=== PATIENT | male | born 1970 | race Caucasian/White ===

== ENCOUNTER → 2022-11-18 | Outpatient (REF) | payer MEDICARE, MEDICAID | LOC: M SFHCADAM 15:18 | PROVIDERS: ATTEND Physician Assistant | DX: R13.10 Dysphagia, unspecified (principal); R63.6 Underweight; Z12.5 Encounter for screening for malignant neoplasm of prostate; Z13.220 Encounter for screening for lipoid disorders; Z13.1 Encounter for screening for diabetes mellitus; Z91.89 Other specified personal risk factors, not elsewhere classified ==

== ENCOUNTER → 2022-11-24 | Outpatient (REF) | payer MEDICARE, MEDICAID ==
[2022-11-24 13:18] LABS: BASO % 0.8 % (0.0-1.0); EOS # 0.2 10^3/uL (0.0-0.5); EOS % 3.4 % (0.0-3.0); HEMATOCRIT 45.1 % (42.0-52.0); HEMOGLOBIN 14.1 g/dl (13.5-17.5); LYMPH % 18.8 % (24.0-44.0); MEAN CORPUSCULAR HEMOGLOBIN 28.1 pg (27.0-33.0); MEAN CORPUSCULAR HGB CONC 31.3 g/dl (32.0-36.5); MONO # 0.5 10^3/uL (0.0-0.8); MONO % 9.6 % (2.0-8.0); NEUTROPHILS # 3.6 10^3/uL (1.5-8.5); NEUTROPHILS % 67.2 % (36.0-66.0); PLATELET COUNT, AUTOMATED 142 10^3/uL (150-450); RED BLOOD COUNT 5.01 10^6/uL (4.30-6.10); WHITE BLOOD COUNT 5.3 10^3/uL (4.0-10.0)
[2022-11-24 13:39] LABS: ALBUMIN 4.1 G/DL (3.2-5.2); ALKALINE PHOSPHATASE 67 U/L (46-116); ALT/SGPT 17 U/L (7.0-40); AST/SGOT 24 U/L (<34); BILIRUBIN,TOTAL 0.5 MG/DL (0.3-1.2); BLOOD UREA NITROGEN 13 MG/DL (9-23); CALCIUM LEVEL 8.7 MG/DL (8.5-10.1); CARBON DIOXIDE LEVEL 33 MMOL/L (20-31); CHLORIDE LEVEL 103 MMOL/L (98-107); CHOLESTEROL LEVEL 130 MG/DL (<200); CHOLESTEROL RISK RATIO 3.07 (<5); CREATININE FOR GFR 0.66 MG/DL (0.70-1.30); GLOMERULAR FILTRATION RATE > 60.0 (>56); GLUCOSE, FASTING 74 MG/DL (60-100); HDL CHOLESTEROL 42.3 MG/DL (>40); LDL CHOLESTEROL 68.9 MG/DL (<100); NON-HDL-C 87.7 MG/DL; POTASSIUM SERUM 4.4 MMOL/L (3.5-5.1); SODIUM LEVEL 140 MMOL/L (136-145); TRIGLYCERIDES LEVEL 94 MG/DL (<150)
[2022-11-24 13:42] LABS: FREE T4 0.87 NG/DL (0.89-1.76); VITAMIN B12 LEVEL 239 PG/ML (211-911)
[2022-11-24 13:44] LABS: THYROID STIMULATING HORMONE 1.545 uIU/ML (0.55-4.78)
[2022-11-24 13:45] LABS: FOLATE 13.1 NG/ML (>5.4)
[2022-11-24 14:27] LABS: HEMOGLOBIN A1c 5.5 % (4.0-6.0)
== END ==
LOC: M SFHCADAM 08:27
PROVIDERS: ATTEND Physician Assistant
DX: R13.10 Dysphagia, unspecified (principal); R63.6 Underweight; Z12.5 Encounter for screening for malignant neoplasm of prostate; Z13.220 Encounter for screening for lipoid disorders; Z13.1 Encounter for screening for diabetes mellitus; Z91.89 Other specified personal risk factors, not elsewhere classified

== ENCOUNTER → 2022-12-07 | Outpatient (REF) | payer MEDICARE, MEDICAID | LOC: M SFHCADAM 17:58 | PROVIDERS: ATTEND Physician Assistant | DX: Z53.20 Procedure and treatment not carried out because of patient's decision for unspecified reasons (principal) ==

== ENCOUNTER → 2023-01-05 | Outpatient (CLI) | payer MEDICARE, MEDICAID ==
[~2023-01-05] MED LIST: E-Z-PAQUE 96% w/w SUSP 176GM BTL As Ordered ONE; VARIBAR NECTAR 40% w/v 240ML SUSP BTL As Ordered ONE; VARIBAR PUDDING 40% w/v 230ML TUBE As Ordered ONE
== END ==
LOC: M RAD 10:31
PROVIDERS: ATTEND Physician Assistant
DX: R13.10 Dysphagia, unspecified (principal)

== ENCOUNTER → 2023-01-06 | Outpatient (CLI) | payer MEDICARE, MEDICAID | LOC: M WHC 13:41 | PROVIDERS: ATTEND Physician Assistant | DX: R19.09 Other intra-abdominal and pelvic swelling, mass and lump (principal) ==

== ENCOUNTER → 2023-04-27 | Outpatient (REF) | payer MEDICARE, MEDICAID ==
[~2023-04-27] MED LIST changes: +AMMO12CR7 TOP; -E-Z-PAQUE 96% w/w SUSP 176GM BTL As Ordered ONE; +SALI0.6530; -VARIBAR NECTAR 40% w/v 240ML SUSP BTL As Ordered ONE; -VARIBAR PUDDING 40% w/v 230ML TUBE As Ordered ONE; +VITA30005 SL; +[UNRECOGNIZED DRUG - CODE] PO
[2023-04-27 14:10] LABS: HEMATOCRIT 41.4 % (42.0-52.0); HEMOGLOBIN 13.2 g/dl (13.5-17.5); MEAN CORPUSCULAR HEMOGLOBIN 28.5 pg (27.0-33.0); MEAN CORPUSCULAR HGB CONC 31.9 g/dl (32.0-36.5); MEAN CORPUSCULAR VOLUME 89.4 fl (80.0-96.0); PLATELET COUNT, AUTOMATED 166 10^3/uL (150-450); RED BLOOD COUNT 4.63 10^6/uL (4.30-6.10); WHITE BLOOD COUNT 9.7 10^3/uL (4.0-10.0)
[2023-04-27 14:41] LABS: ALBUMIN 3.7 G/DL (3.2-5.2); ALKALINE PHOSPHATASE 58 U/L (46-116); ALT/SGPT 23 U/L (7.0-40); AST/SGOT 40 U/L (<34); BILIRUBIN,TOTAL 0.3 MG/DL (0.3-1.2); BLOOD UREA NITROGEN 13 MG/DL (9-23); CALCIUM LEVEL 8.6 MG/DL (8.5-10.1); CARBON DIOXIDE LEVEL 31 MMOL/L (20-31); CHLORIDE LEVEL 102 MMOL/L (98-107); CREATININE FOR GFR 0.65 MG/DL (0.70-1.30); GLOMERULAR FILTRATION RATE > 60.0 (>56); GLUCOSE, FASTING 70 MG/DL (60-100); SODIUM LEVEL 139 MMOL/L (136-145); TOTAL PROTEIN 7.2 G/DL (5.7-8.2)
== END ==
LOC: M SFHCADAM 11:06
PROVIDERS: ATTEND Physician Assistant
DX: Z01.818 Encounter for other preprocedural examination (principal); J01.90 Acute sinusitis, unspecified

== ENCOUNTER → 2023-04-27 | Outpatient (CLI) | payer MEDICARE, MEDICAID ==
[~2023-04-27] MED LIST changes: +HYDR1SOL49 PO; +[UNRECOGNIZED DRUG - CODE] PO
== END ==
LOC: M ADAMS 11:15
PROVIDERS: ATTEND Physician Assistant
DX: Z01.818 Encounter for other preprocedural examination (principal); G80.9 Cerebral palsy, unspecified

== ENCOUNTER 2023-05-05 09:10 | Day surgery (SDC) | payer MEDICARE, MEDICAID ==
[~2023-05-05] VITALS: Ht 162.6 cm; Wt 45.8 kg
[~2023-05-05 09:10] MED LIST changes: +CelecoXIB 400 MG CAP PO ONE; -HYDR1SOL49 PO; -[UNRECOGNIZED DRUG - CODE] PO; +ceFAZolin SOD 2 GM in IV 1 EA IV ONE
[2023-05-05] MEDS ORDERED: propofoL 200 MG/20 ML VIAL As Ordered ONE (09:24)
[2023-05-05] MEDS ORDERED: ROCURONIUM BROMIDE 50MG/5ML VIAL As Ordered ONE (09:24)
[2023-05-05] MEDS ORDERED: MIDAZOLAM INJ 2MG/2ML VIAL As Ordered ONE (09:24)
[2023-05-05] MEDS ORDERED: LIDOCAINE 2% 100MG/5ML SDV (FOR ANES.) As Ordered ONE (09:24)
[2023-05-05] MEDS ORDERED: fentaNYL 100 MCG/2 ML INJECTION As Ordered ONE (09:24)
[2023-05-05] MEDS ORDERED: LR 1,000 ML IV SCH ×2 (09:35→13:05)
[2023-05-05] MEDS ORDERED: LIDOCAINE 1% SDV 30ML VIAL As Ordered ONE (10:38)
[2023-05-05] MEDS ORDERED: ACETAMINOPHEN 1000MG 100ML IV BAG As Ordered ONE (11:41)
[2023-05-05] MEDS ORDERED: KETOROLAC 60MG 2ML VIAL As Ordered ONE (11:42)
[2023-05-05] MEDS ORDERED: ONDANSETRON 4MG 2ML VIAL As Ordered ONE (11:42)
[2023-05-05] MEDS ORDERED: ONDANSETRON 4MG 2ML VIAL IV PRN (13:05)
[2023-05-05] MEDS ORDERED: oxyCODONE 5MG TAB PO PRN (13:05)
[2023-05-05] MEDS ORDERED: fentaNYL 100 MCG/2 ML INJECTION IV PRN (13:05)
[2023-05-05] MEDS ORDERED: HYDROcodone/APAP LIQUID 7.5-325MG 15ML UDC (LORTAB ELIXIR) PO PRN (13:35)
[2023-05-05] MEDS ORDERED: HYDR1SOL49 PO (13:36)
[2023-05-05 14:00] VITALS: BP 135/74; TEMP 98; O2SAT 94
[2023-05-05] MEDS ORDERED: [UNRECOGNIZED DRUG - CODE] PO (18:16)
== END 2023-05-05 14:25 | disposition home or self-care (01) ==
LOC: M SDC 09:10
PROVIDERS: ATTEND Surgery
DX: K40.20 Bilateral inguinal hernia, without obstruction or gangrene, not specified as recurrent (principal); D17.6 Benign lipomatous neoplasm of spermatic cord; G80.9 Cerebral palsy, unspecified; Z88.2 Allergy status to sulfonamides
CPT/HCPCS: 49650; 55520; C1781; J0131; J0665; J0690; J1100; J1885; J2250; J2405; J3010

== ENCOUNTER → 2023-08-11 | Outpatient (REF) | payer MEDICARE, MEDICAID ==
[~2023-08-11] MED LIST changes: -CelecoXIB 400 MG CAP PO ONE; +HYDR1SOL49 PO; +[UNRECOGNIZED DRUG - CODE] PO; -ceFAZolin SOD 2 GM in IV 1 EA IV ONE
== END ==
LOC: M SFHCADAM 08:46
PROVIDERS: ATTEND Physician Assistant
DX: Z53.9 Procedure and treatment not carried out, unspecified reason (principal)

== ENCOUNTER → 2023-08-22 | Outpatient (CLI) | payer MEDICARE, MEDICAID | LOC: M ADAMS 12:26 | PROVIDERS: ATTEND Physician Assistant | DX: J06.9 Acute upper respiratory infection, unspecified (principal) ==

== ENCOUNTER → 2023-08-22 | Outpatient (REF) | payer MEDICARE, MEDICAID ==
[2023-08-22 16:31] LABS: BASO # 0.1 10^3/uL (0.0-0.2); BASO % 0.8 % (0.0-1.0); EOS # 0.4 10^3/uL (0.0-0.5); EOS % 4.6 % (0.0-3.0); HEMATOCRIT 47.5 % (42.0-52.0); HEMOGLOBIN 14.7 g/dl (13.5-17.5); LYMPH # 0.8 10^3/uL (1.5-5.0); LYMPH % 10.4 % (24.0-44.0); MEAN CORPUSCULAR HEMOGLOBIN 27.4 pg (27.0-33.0); MEAN CORPUSCULAR HGB CONC 30.9 g/dl (32.0-36.5); MEAN CORPUSCULAR VOLUME 88.6 fl (80.0-96.0); MONO # 0.9 10^3/uL (0.0-0.8); MONO % 11.8 % (2.0-8.0); NEUTROPHILS # 5.7 10^3/uL (1.5-8.5); NEUTROPHILS % 72.1 % (36.0-66.0); RED BLOOD COUNT 5.36 10^6/uL (4.30-6.10); WHITE BLOOD COUNT 7.9 10^3/uL (4.0-10.0)
[2023-08-22 16:51] LABS: PLATELET COUNT, AUTOMATED 139 10^3/uL (150-450)
[2023-08-22 16:52] LABS: GIANT PLATELETS 1+; PLATELET ESTIMATE DECREASED (NORMAL)
[2023-08-22 17:00] LABS: ALBUMIN 4.1 G/DL (3.2-5.2); ALKALINE PHOSPHATASE 82 U/L (46-116); ALT/SGPT 23 U/L (7.0-40); AST/SGOT 29 U/L (<34); BILIRUBIN,TOTAL 0.4 MG/DL (0.3-1.2); BLOOD UREA NITROGEN 11 MG/DL (9-23); CALCIUM LEVEL 9.5 MG/DL (8.5-10.1); CARBON DIOXIDE LEVEL 31 MMOL/L (20-31); CHLORIDE LEVEL 102 MMOL/L (98-107); CREATININE FOR GFR 0.64 MG/DL (0.70-1.30); GLOMERULAR FILTRATION RATE > 60.0 (>56); GLUCOSE, FASTING 73 MG/DL (60-100); POTASSIUM SERUM 4.9 MMOL/L (3.5-5.1); SODIUM LEVEL 140 MMOL/L (136-145); TOTAL PROTEIN 7.8 G/DL (5.7-8.2)
== END ==
LOC: M SFHCADAM 12:20
PROVIDERS: ATTEND Physician Assistant
DX: J06.9 Acute upper respiratory infection, unspecified (principal)

== ENCOUNTER 2023-08-23 14:45 | Inpatient (IN) | payer MEDICARE, MEDICAID ==
[~2023-08-23] VITALS: Ht 162.6 cm; Wt 49.0 kg
[2023-08-23] MEDS ORDERED: NS 500 ML IV ONE (15:20)
[2023-08-23] MEDS ORDERED: cefTRIAXone SOD 2 GM in D5W MINI-BAG PLUS 50 ML IV ONE (15:20)
[2023-08-23] MEDS ORDERED: IBUPROFEN 100MG 5ML SUSP UDC DYE FREE PO ONE (15:20)
[2023-08-23 15:37] LABS: ABG BASE EXCESS 5.3 (-2.0-2.0); ABG HCO3 28.5 MMOL/L (22.0-26.0); ABG O2 SATURATION 94.7 % (95.0-99.0); ABG PARTIAL PRESSURE O2 66.4 mmHg (75.0-100.0); ABG STANDARD HCO3 29.2 MMOL/L. (22.0-26.0); ABG TOTAL CO2 29.7 MMOL/L (22.0-29.0); ABG pH (ARTERIAL) 7.505 UNITS (7.350-7.450)
[2023-08-23 15:38] LABS: BASO # 0.1 10^3/uL (0.0-0.2); BASO % 0.6 % (0.0-1.0); EOS # 0.2 10^3/uL (0.0-0.5); EOS % 1.6 % (0.0-3.0); HEMATOCRIT 40.1 % (42.0-52.0); LYMPH # 0.9 10^3/uL (1.5-5.0); LYMPH % 9.1 % (24.0-44.0); MEAN CORPUSCULAR HEMOGLOBIN 27.5 pg (27.0-33.0); MEAN CORPUSCULAR HGB CONC 32.4 g/dl (32.0-36.5); MONO # 1.3 10^3/uL (0.0-0.8); MONO % 13.2 % (2.0-8.0); NEUTROPHILS # 7.5 10^3/uL (1.5-8.5); NEUTROPHILS % 75.2 % (36.0-66.0); PLATELET COUNT, AUTOMATED 151 10^3/uL (150-450); RED BLOOD COUNT 4.72 10^6/uL (4.30-6.10)
[2023-08-23 15:51] LABS: INR 1.16; PROTHROMBIN TIME 14.5 SECONDS (12.5-14.5)
[2023-08-23] MEDS ORDERED: ACETAMINOPHEN *IV* 500 MG in IV 1 EA IV ONE (15:55)
[2023-08-23 16:09] LABS: CPK CREATINE PHOSPHOKINASE 583 U/L (46-171)
[2023-08-23 16:10] LABS: ALBUMIN 3.7 G/DL (3.2-5.2); ALKALINE PHOSPHATASE 69 U/L (46-116); ALT/SGPT 21 U/L (7.0-40); AST/SGOT 30 U/L (<34); BILIRUBIN,DIRECT 0.2 MG/DL (<0.4); BILIRUBIN,TOTAL 0.4 MG/DL (0.3-1.2); BLOOD UREA NITROGEN 16 MG/DL (9-23); CALCIUM LEVEL 8.6 MG/DL (8.5-10.1); CARBON DIOXIDE LEVEL 33 MMOL/L (20-31); CHLORIDE LEVEL 100 MMOL/L (98-107); CK-MB VALUE MASS < 1.0 NG/ML (<3.6); CREATININE FOR GFR 0.79 MG/DL (0.70-1.30); GLOMERULAR FILTRATION RATE > 60.0 (>56); GLUCOSE, FASTING 114 MG/DL (60-100); MB/CK RELATIVE INDEX 0.17 (< OR =4); POTASSIUM SERUM 4.1 MMOL/L (3.5-5.1); SODIUM LEVEL 137 MMOL/L (136-145); TOTAL PROTEIN 7.5 G/DL (5.7-8.2)
[2023-08-23 16:11] LABS: THYROID STIMULATING HORMONE 2.351 uIU/ML (0.55-4.78)
[2023-08-23 16:12] LABS: FREE T4 0.96 NG/DL (0.89-1.76)
[2023-08-23] MEDS ORDERED: NS 930 ML in IV 1 EA IV ONE (16:25)
[2023-08-23] MEDS ORDERED: ISOVUE-370 76% 100ML VIAL As Ordered ONE (16:33)
[2023-08-23] MEDS ORDERED: MED REC IN PROGRESS XX SCH (16:45)
[2023-08-23 17:03] LABS: AMORPHOUS SEDIMENT SMALL (NEGATIVE); APPEARANCE, URINE CLOUDY (CLEAR); BACTERIA, URINE AUTO NEGATIVE (NEGATIVE); BILIRUBIN, URINE AUTO NEGATIVE (NEGATIVE); BLOOD, URINE BLOOD 1+ (NEGATIVE); COLOR, URINE AMBER (YELLOW); GLUCOSE, URINE (UA) AUTO NEGATIVE (NEGATIVE); KETONE, URINE AUTO NEGATIVE (NEGATIVE); LEUKOCYTE ESTERASE, URINE AUTO NEGATIVE (NEGATIVE); MUCUS, URINE SMALL (NEGATIVE); NITRITE, URINE AUTO NEGATIVE (NEGATIVE); PROTEIN, URINE AUTO 2+ mg/dL (NEGATIVE); RBC, URINE AUTO 100 /HPF (0-3); SPECIFIC GRAVITY URINE AUTO 1.029 (1.002-1.035); SQUAMOUS EPITHELIAL CELL UR AU 0 /HPF (0-6); UROBILINOGEN, URINE AUTO 0.2 mg/dL (0.0-2.0); WBC, URINE AUTO 10 /HPF (0-3)
[2023-08-23] MEDS ORDERED: HOME MED LIST COMPLETE! XX SCH (18:15)
[2023-08-23] MEDS ORDERED: ACETAMINOPHEN TAB 650MG DOSE (2X325MG) PO PRN (19:35)
[2023-08-23] MEDS: ALBUTEROL SULFATE 2.5MG/0.5ML INH NEB SOLN INH SCH (20:00)
[2023-08-23] MEDS: NS 1,000 ML IV SCH (20:18)
[2023-08-23 20:23] LABS: PROCALCITONIN 0.06 ng/ml
[2023-08-23] MEDS ORDERED: DOXYCYCLINE HYCLATE 100 MG in D5W MINI-BAG PLUS 100 ML IV SCH (21:00)
[2023-08-24] VITALS (18 sets, daily range): BP systolic 120–145; BP diastolic 56–73; TEMP 100.2–103.2; O2SAT 90–98
[2023-08-24] MEDS: ALBUTEROL SULFATE 2.5MG/0.5ML INH NEB SOLN INH SCH ×4 (01:24→16:00)
[2023-08-24] MEDS: NS 1,000 ML IV SCH ×2 (06:59→09:48)
[2023-08-24 07:13] LABS: HEMATOCRIT 37.9 % (42.0-52.0); MEAN CORPUSCULAR HEMOGLOBIN 27.5 pg (27.0-33.0); MEAN CORPUSCULAR HGB CONC 31.7 g/dl (32.0-36.5); MEAN CORPUSCULAR VOLUME 86.9 fl (80.0-96.0); PLATELET COUNT, AUTOMATED 129 10^3/uL (150-450); RED BLOOD COUNT 4.36 10^6/uL (4.30-6.10)
[2023-08-24 07:43] LABS: ALBUMIN 2.9 G/DL (3.2-5.2); ALKALINE PHOSPHATASE 53 U/L (46-116); ALT/SGPT 20 U/L (7.0-40); AST/SGOT 30 U/L (<34); BILIRUBIN,TOTAL 0.2 MG/DL (0.3-1.2); BLOOD UREA NITROGEN 11 MG/DL (9-23); CALCIUM LEVEL 7.2 MG/DL (8.5-10.1); CARBON DIOXIDE LEVEL 29 MMOL/L (20-31); CHLORIDE LEVEL 108 MMOL/L (98-107); CREATININE FOR GFR 0.63 MG/DL (0.70-1.30); GLOMERULAR FILTRATION RATE > 60.0 (>56); GLUCOSE, FASTING 75 MG/DL (60-100); MAGNESIUM LEVEL 1.7 MG/DL (1.8-2.4); SODIUM LEVEL 142 MMOL/L (136-145); TOTAL PROTEIN 5.7 G/DL (5.7-8.2)
[2023-08-24] MEDS: FORMOTEROL FUMARATE 20 MCG/2 ML INHALATION SOLUTION (PERFOROMIST) INH SCH ×2 (08:48→20:17)
[2023-08-24] MEDS: SODIUM CHLORIDE HYPERTONIC 3% 4ML NEB SOL INH SCH ×4 (08:48→20:17)
[2023-08-24] MEDS: BUDESONIDE 0.5 MG/2 ML INHALATION SUSPENSION NEB SCH ×2 (08:48→20:17)
[2023-08-24] MEDS ORDERED: SODIUM CHLORIDE 0.9% 1000ML IV SCH (09:30)
[2023-08-24] MEDS: ENOXAPARIN 40MG/0.4ML SYRINGE (J1650 PER 10MG) SC SCH (09:48)
[2023-08-24] MEDS: PIPERACILLIN/TAZOBACTAM SOD 3.375 GM in D5W MINI-BAG PLUS 50 ML IV SCH ×3 (09:48→21:54)
[2023-08-24] MEDS ORDERED: MAG SULF 1GM/100ML (MAG RUN) 1 GM in IV 1 EA IV ONE (15:10)
[2023-08-24] MEDS: ACETAMINOPHEN *IV* 1,000 MG in IV 1 EA IV PRN (15:59)
[2023-08-24] MEDS ORDERED: cefTRIAXone SOD 1 GM in D5W MINI-BAG PLUS 50 ML IV SCH (16:00)
[2023-08-24] MEDS: LEVALBUTEROL 1.25MG 0.5ML CONCENTRATE NEB INH SCH (20:17)
[2023-08-24] MEDS: SODIUM CHLORIDE NASAL 0.65% SPRAY BTL (OCEAN) SCH (21:00)
[2023-08-25] VITALS (33 sets, daily range): BP systolic 102–122; BP diastolic 55–93; TEMP 98.3–100.9; O2SAT 87–99
[2023-08-25] MEDS: NS 1,000 ML IV SCH ×2 (01:35→17:58)
[2023-08-25] MEDS: SODIUM CHLORIDE HYPERTONIC 3% 4ML NEB SOL INH SCH ×4 (01:39→20:21)
[2023-08-25] MEDS: LEVALBUTEROL 1.25MG 0.5ML CONCENTRATE NEB INH SCH ×4 (01:39→20:21)
[2023-08-25] MEDS: ACETAMINOPHEN *IV* 1,000 MG in IV 1 EA IV PRN (04:21)
[2023-08-25] MEDS: PIPERACILLIN/TAZOBACTAM SOD 3.375 GM in D5W MINI-BAG PLUS 50 ML IV SCH ×4 (04:44→21:02)
[2023-08-25 06:55] LABS: HEMOGLOBIN 11.8 g/dl (13.5-17.5); MEAN CORPUSCULAR HEMOGLOBIN 28.2 pg (27.0-33.0); MEAN CORPUSCULAR HGB CONC 32.8 g/dl (32.0-36.5); MEAN CORPUSCULAR VOLUME 85.9 fl (80.0-96.0); PLATELET COUNT, AUTOMATED 129 10^3/uL (150-450); RED BLOOD COUNT 4.19 10^6/uL (4.30-6.10); WHITE BLOOD COUNT 7.6 10^3/uL (4.0-10.0)
[2023-08-25 07:22] LABS: BLOOD UREA NITROGEN 11 MG/DL (9-23); CALCIUM LEVEL 7.1 MG/DL (8.5-10.1); CARBON DIOXIDE LEVEL 27 MMOL/L (20-31); CHLORIDE LEVEL 103 MMOL/L (98-107); CREATININE FOR GFR 0.72 MG/DL (0.70-1.30); GLOMERULAR FILTRATION RATE > 60.0 (>56); GLUCOSE, FASTING 79 MG/DL (60-100); SODIUM LEVEL 139 MMOL/L (136-145)
[2023-08-25] MEDS: BUDESONIDE 0.5 MG/2 ML INHALATION SUSPENSION NEB SCH ×2 (07:31→20:20)
[2023-08-25] MEDS: FORMOTEROL FUMARATE 20 MCG/2 ML INHALATION SOLUTION (PERFOROMIST) INH SCH ×2 (07:31→20:21)
[2023-08-25] MEDS: ENOXAPARIN 40MG/0.4ML SYRINGE (J1650 PER 10MG) SC SCH (09:56)
[2023-08-25] MEDS: SODIUM CHLORIDE NASAL 0.65% SPRAY BTL (OCEAN) SCH ×2 (09:56→21:02)
[2023-08-25] MEDS: dexAMETHasone 20MG/5ML VIAL IV SCH (10:12)
[2023-08-25] MEDS ORDERED: MIRA3350 PO (13:21)
[2023-08-26] VITALS (34 sets, daily range): BP systolic 94–135; BP diastolic 52–76; TEMP 96.8–98.5; O2SAT 89–100
[2023-08-26] MEDS: SODIUM CHLORIDE HYPERTONIC 3% 4ML NEB SOL INH SCH ×4 (01:54→20:01)
[2023-08-26] MEDS: LEVALBUTEROL 1.25MG 0.5ML CONCENTRATE NEB INH SCH ×4 (01:54→20:00)
[2023-08-26] MEDS: PIPERACILLIN/TAZOBACTAM SOD 3.375 GM in D5W MINI-BAG PLUS 50 ML IV SCH ×4 (03:00→21:15)
[2023-08-26] MEDS: NS 1,000 ML IV SCH ×3 (03:53→20:01)
[2023-08-26 07:10] LABS: HEMATOCRIT 36.6 % (42.0-52.0); HEMOGLOBIN 11.8 g/dl (13.5-17.5); MEAN CORPUSCULAR HEMOGLOBIN 28.2 pg (27.0-33.0); MEAN CORPUSCULAR HGB CONC 32.2 g/dl (32.0-36.5); MEAN CORPUSCULAR VOLUME 87.4 fl (80.0-96.0); PLATELET COUNT, AUTOMATED 138 10^3/uL (150-450); RED BLOOD COUNT 4.19 10^6/uL (4.30-6.10); WHITE BLOOD COUNT 5.5 10^3/uL (4.0-10.0)
[2023-08-26] MEDS: FORMOTEROL FUMARATE 20 MCG/2 ML INHALATION SOLUTION (PERFOROMIST) INH SCH ×2 (07:39→20:00)
[2023-08-26] MEDS: BUDESONIDE 0.5 MG/2 ML INHALATION SUSPENSION NEB SCH ×2 (07:40→20:00)
[2023-08-26] MEDS: dexAMETHasone 20MG/5ML VIAL IV SCH (10:17)
[2023-08-26] MEDS: ENOXAPARIN 40MG/0.4ML SYRINGE (J1650 PER 10MG) SC SCH (10:18)
[2023-08-26] MEDS: SODIUM CHLORIDE NASAL 0.65% SPRAY BTL (OCEAN) SCH ×2 (10:18→21:15)
[2023-08-27] VITALS (17 sets, daily range): BP systolic 111–121; BP diastolic 66–87; TEMP 97.3–98.9; O2SAT 90–100
[2023-08-27] MEDS: LEVALBUTEROL 1.25MG 0.5ML CONCENTRATE NEB INH SCH ×4 (01:43→19:33)
[2023-08-27] MEDS: SODIUM CHLORIDE HYPERTONIC 3% 4ML NEB SOL INH SCH ×4 (01:43→19:34)
[2023-08-27] MEDS: PIPERACILLIN/TAZOBACTAM SOD 3.375 GM in D5W MINI-BAG PLUS 50 ML IV SCH ×4 (02:41→21:18)
[2023-08-27] MEDS: BUDESONIDE 0.5 MG/2 ML INHALATION SUSPENSION NEB SCH ×2 (09:03→19:33)
[2023-08-27] MEDS: FORMOTEROL FUMARATE 20 MCG/2 ML INHALATION SOLUTION (PERFOROMIST) INH SCH ×2 (09:04→20:10)
[2023-08-27] MEDS: SODIUM CHLORIDE NASAL 0.65% SPRAY BTL (OCEAN) SCH ×2 (09:56→21:18)
[2023-08-27] MEDS: dexAMETHasone 20MG/5ML VIAL IV SCH (09:56)
[2023-08-27] MEDS: ENOXAPARIN 40MG/0.4ML SYRINGE (J1650 PER 10MG) SC SCH (09:56)
[2023-08-28] MEDS: LEVALBUTEROL 1.25MG 0.5ML CONCENTRATE NEB INH SCH ×2 (01:44→08:15)
[2023-08-28] MEDS: SODIUM CHLORIDE HYPERTONIC 3% 4ML NEB SOL INH SCH ×2 (01:47→08:07)
[2023-08-28] MEDS: PIPERACILLIN/TAZOBACTAM SOD 3.375 GM in D5W MINI-BAG PLUS 50 ML IV SCH ×2 (03:35→08:48)
[2023-08-28 05:13] VITALS: BP 115/66; TEMP 98.1; O2SAT 90
[2023-08-28 06:26] LABS: HEMATOCRIT 39.7 % (42.0-52.0); HEMOGLOBIN 12.6 g/dl (13.5-17.5); MEAN CORPUSCULAR HEMOGLOBIN 27.8 pg (27.0-33.0); MEAN CORPUSCULAR HGB CONC 31.7 g/dl (32.0-36.5); MEAN CORPUSCULAR VOLUME 87.6 fl (80.0-96.0); PLATELET COUNT, AUTOMATED 163 10^3/uL (150-450); RED BLOOD COUNT 4.53 10^6/uL (4.30-6.10); WHITE BLOOD COUNT 6.4 10^3/uL (4.0-10.0)
[2023-08-28 06:42] LABS: BLOOD UREA NITROGEN 13 MG/DL (9-23); CARBON DIOXIDE LEVEL 30 MMOL/L (20-31); CHLORIDE LEVEL 109 MMOL/L (98-107); CREATININE FOR GFR 0.63 MG/DL (0.70-1.30); GLOMERULAR FILTRATION RATE > 60.0 (>56); GLUCOSE, FASTING 91 MG/DL (60-100); POTASSIUM SERUM 3.9 MMOL/L (3.5-5.1); SODIUM LEVEL 145 MMOL/L (136-145)
[2023-08-28 06:59] LABS: ATYPICAL LYMPH 6 % (0-5); LYMPHOCYTES 27 % (16-44); MONOCYTES 8 % (0-5); NEUTROPHILS 59 % (28-66); PLATELET ESTIMATE NORMAL (NORMAL)
[2023-08-28] MEDS: FORMOTEROL FUMARATE 20 MCG/2 ML INHALATION SOLUTION (PERFOROMIST) INH SCH (08:07)
[2023-08-28] MEDS: BUDESONIDE 0.5 MG/2 ML INHALATION SUSPENSION NEB SCH (08:15)
[2023-08-28] MEDS: dexAMETHasone 20MG/5ML VIAL IV SCH (08:49)
[2023-08-28] MEDS: ENOXAPARIN 40MG/0.4ML SYRINGE (J1650 PER 10MG) SC SCH (08:59)
[2023-08-28] MEDS ORDERED: PRED20TA PO (09:00)
[2023-08-28] MEDS: SODIUM CHLORIDE NASAL 0.65% SPRAY BTL (OCEAN) SCH (09:00)
[2023-08-28] MEDS ORDERED: PROBCAP19 PO (09:00)
[2023-08-28] MEDS ORDERED: AMOX1SUS9 PO (09:00)
[2023-08-28] MEDS ORDERED: BUDE0.5S6 NEB (09:00)
[2023-08-28] MEDS ORDERED: ALBU2.5V10 NEB (09:00)
[2023-08-28 11:20] VITALS: O2SAT 93
[2023-08-28] MEDS ORDERED: PRED5ELUD PO (16:37)
== END 2023-08-28 14:10 | disposition home or self-care (01) | DRG 871 ==
LOC: EDBD 14:45 → M ED 14:45 → M ED INP 19:33 → M PCU 08-24 12:34 → M MS5PR 08-27 17:18
PROVIDERS: ADMIT Family Medicine; ATTEND Internal Medicine Nephrology
DX: A41.9 Sepsis, unspecified organism (principal); J96.01 Acute respiratory failure with hypoxia; J15.69 Pneumonia due to other Gram-negative bacteria; J21.0 Acute bronchiolitis due to respiratory syncytial virus; E83.42 Hypomagnesemia; R13.12 Dysphagia, oropharyngeal phase; G80.9 Cerebral palsy, unspecified; M54.9 Dorsalgia, unspecified; G89.29 Other chronic pain; Z79.899 Other long term (current) drug therapy; Z88.2 Allergy status to sulfonamides; Z20.822 Contact with and (suspected) exposure to COVID-19

== ENCOUNTER 2023-09-15 15:16 | Inpatient (IN) | payer MEDICARE, MEDICAID ==
[~2023-09-15] VITALS: Ht 162.6 cm; Wt 46.6 kg
[~2023-09-15 15:16] MED LIST changes: +ALBU2.5V10 NEB; +AMOX1SUS9 PO; +BUDE0.5S6 NEB; +MIRA3350 PO; +PRED20TA PO; +PRED5ELUD PO; +PROBCAP19 PO; -SALI0.6530; +SODI88SP
[2023-09-15] MEDS: NS 1,000 ML IV ONE (17:25)
[2023-09-15 17:32] LABS: BASO % 0.2 % (0.0-1.0); EOS # 0.1 10^3/uL (0.0-0.5); EOS % 0.5 % (0.0-3.0); HEMATOCRIT 42.2 % (42.0-52.0); HEMOGLOBIN 13.5 g/dl (13.5-17.5); LYMPH # 1.4 10^3/uL (1.5-5.0); LYMPH % 7.7 % (24.0-44.0); MEAN CORPUSCULAR HEMOGLOBIN 27.7 pg (27.0-33.0); MEAN CORPUSCULAR VOLUME 86.5 fl (80.0-96.0); MONO % 5.5 % (2.0-8.0); NEUTROPHILS # 15.9 10^3/uL (1.5-8.5); NEUTROPHILS % 85.7 % (36.0-66.0); PLATELET COUNT, AUTOMATED 136 10^3/uL (150-450); RED BLOOD COUNT 4.88 10^6/uL (4.30-6.10); WHITE BLOOD COUNT 18.5 10^3/uL (4.0-10.0)
[2023-09-15 17:51] LABS: ALBUMIN 3.7 G/DL (3.2-5.2); ALKALINE PHOSPHATASE 55 U/L (46-116); ALT/SGPT 14 U/L (7.0-40); AST/SGOT 17 U/L (<34); BILIRUBIN,TOTAL 0.6 MG/DL (0.3-1.2); BLOOD UREA NITROGEN 12 MG/DL (9-23); CALCIUM LEVEL 8.8 MG/DL (8.5-10.1); CARBON DIOXIDE LEVEL 32 MMOL/L (20-31); CHLORIDE LEVEL 102 MMOL/L (98-107); GLOMERULAR FILTRATION RATE > 60.0 (>56); GLUCOSE, FASTING 69 MG/DL (60-100); POTASSIUM SERUM 4.4 MMOL/L (3.5-5.1); SODIUM LEVEL 139 MMOL/L (136-145); TOTAL PROTEIN 6.7 G/DL (5.7-8.2)
[2023-09-15] MEDS ORDERED: ISOVUE-370 76% 100ML VIAL As Ordered ONE (18:05)
[2023-09-15] MEDS: AZITHROMYCIN 250MG TABLET PO ONE (18:45)
[2023-09-15] MEDS: cefTRIAXone SOD 1 GM in D5W MINI-BAG PLUS 50 ML IV ONE (19:12)
[2023-09-15] MEDS: ACETAMINOPHEN 160MG/5ML SUSP UDC DYE-FREE PO ONE (19:27)
[2023-09-15] MEDS: AZITHROMYCIN INJ 500 MG, VIAL MATE ADAPTER 1 EACH in NS 250 ML IV ONE (19:29)
[2023-09-15] MEDS ORDERED: ALBU2.5V10 INH (19:50)
[2023-09-15] MEDS ORDERED: ACET160L16 PO (19:50)
[2023-09-15] MEDS ORDERED: AZEL1SPR3 NARES (19:57)
[2023-09-15] MEDS ORDERED: DESI13CR2 TOP (19:57)
[2023-09-15] MEDS ORDERED: POLY17PO10 PO (20:02)
[2023-09-15] MEDS ORDERED: DOCU5LIQ PO (20:02)
[2023-09-15] MEDS ORDERED: HOME MED LIST COMPLETE! XX SCH (20:05)
[2023-09-15] MEDS ORDERED: ACETAMINOPHEN TAB 650MG DOSE (2X325MG) PO PRN (20:40)
[2023-09-15] MEDS: NS 1,000 ML IV SCH (20:55)
[2023-09-15] MEDS: DOCUSATE SODIUM 100MG CAPSULE PO SCH (21:00)
[2023-09-15 21:47] LABS: PROCALCITONIN 0.09 ng/ml
[2023-09-15 22:45] VITALS: BP 112/66; TEMP 97.3; O2SAT 96
[2023-09-15] MEDS ORDERED: ALBUTEROL SULFATE 2.5MG/0.5ML INH NEB SOLN NEB PRN (22:45)
[2023-09-16] MEDS: NS 1,000 ML IV ONE (00:40)
[2023-09-16] MEDS: IPRATROPIUM 0.5MG/ALBUTEROL 2.5MG INH SOL UD 3ML (DUONEB) NEB SCH (04:00)
[2023-09-16 06:00] VITALS: BP 118/70; TEMP 98.3; O2SAT 95
[2023-09-16 06:46] LABS: BASO % 0.2 % (0.0-1.0); EOS # 0.4 10^3/uL (0.0-0.5); EOS % 2.9 % (0.0-3.0); HEMATOCRIT 39.2 % (42.0-52.0); HEMOGLOBIN 12.6 g/dl (13.5-17.5); LYMPH % 8.5 % (24.0-44.0); MEAN CORPUSCULAR HEMOGLOBIN 28.2 pg (27.0-33.0); MEAN CORPUSCULAR HGB CONC 32.1 g/dl (32.0-36.5); MEAN CORPUSCULAR VOLUME 87.7 fl (80.0-96.0); MONO # 0.7 10^3/uL (0.0-0.8); MONO % 5.7 % (2.0-8.0); NEUTROPHILS # 10.1 10^3/uL (1.5-8.5); NEUTROPHILS % 82.3 % (36.0-66.0); PLATELET COUNT, AUTOMATED 117 10^3/uL (150-450); RED BLOOD COUNT 4.47 10^6/uL (4.30-6.10); WHITE BLOOD COUNT 12.3 10^3/uL (4.0-10.0)
[2023-09-16 07:08] LABS: BLOOD UREA NITROGEN 8 MG/DL (9-23); CALCIUM LEVEL 8.1 MG/DL (8.5-10.1); CARBON DIOXIDE LEVEL 32 MMOL/L (20-31); CHLORIDE LEVEL 106 MMOL/L (98-107); CREATININE FOR GFR 0.58 MG/DL (0.70-1.30); GLOMERULAR FILTRATION RATE > 60.0 (>56); GLUCOSE, FASTING 87 MG/DL (60-100); SODIUM LEVEL 143 MMOL/L (136-145)
[2023-09-16] MEDS: PIPERACILLIN/TAZOBACTAM SOD 3.375 GM in D5W MINI-BAG PLUS 50 ML IV SCH (08:15)
[2023-09-16] MEDS ORDERED: CYANOCOBALAMIN 250 MCG TABLET PO SCH (09:00)
[2023-09-16] MEDS: ENOXAPARIN 40MG/0.4ML SYRINGE (J1650 PER 10MG) SC SCH (09:12)
[2023-09-16 14:00] VITALS: BP 119/80; TEMP 98.2; O2SAT 100
[2023-09-16] MEDS ORDERED: cefTRIAXone SOD 1 GM in D5W MINI-BAG PLUS 50 ML IV SCH (18:00)
[2023-09-16 20:34] VITALS: BP 123/78; TEMP 98.1; O2SAT 98
[2023-09-16] MEDS ORDERED: AZITHROMYCIN 250MG TABLET PO SCH (21:00)
[2023-09-16 22:00] VITALS: BP 118/76; TEMP 98.2; O2SAT 97
[2023-09-17 06:54] LABS: BASO % 0.5 % (0.0-1.0); EOS # 0.3 10^3/uL (0.0-0.5); EOS % 4.1 % (0.0-3.0); HEMATOCRIT 41.8 % (42.0-52.0); HEMOGLOBIN 13.1 g/dl (13.5-17.5); LYMPH # 0.8 10^3/uL (1.5-5.0); LYMPH % 10.1 % (24.0-44.0); MEAN CORPUSCULAR HEMOGLOBIN 27.8 pg (27.0-33.0); MEAN CORPUSCULAR HGB CONC 31.3 g/dl (32.0-36.5); MEAN CORPUSCULAR VOLUME 88.6 fl (80.0-96.0); MONO # 0.7 10^3/uL (0.0-0.8); MONO % 8.2 % (2.0-8.0); NEUTROPHILS # 6.1 10^3/uL (1.5-8.5); NEUTROPHILS % 76.8 % (36.0-66.0); PLATELET COUNT, AUTOMATED 113 10^3/uL (150-450); RED BLOOD COUNT 4.72 10^6/uL (4.30-6.10)
[2023-09-17 07:21] LABS: BLOOD UREA NITROGEN 7 MG/DL (9-23); CALCIUM LEVEL 8.1 MG/DL (8.5-10.1); CARBON DIOXIDE LEVEL 30 MMOL/L (20-31); CHLORIDE LEVEL 108 MMOL/L (98-107); CREATININE FOR GFR 0.63 MG/DL (0.70-1.30); GLOMERULAR FILTRATION RATE > 60.0 (>56); GLUCOSE, FASTING 88 MG/DL (60-100); MAGNESIUM LEVEL 1.7 MG/DL (1.8-2.4); POTASSIUM SERUM 4.5 MMOL/L (3.5-5.1); SODIUM LEVEL 145 MMOL/L (136-145)
[2023-09-17] MEDS: MAG SULF 1GM/100ML (MAG RUN) 1 GM in IV 1 EA IV SCH (07:57)
[2023-09-17 14:14] VITALS: BP 99/61; TEMP 97.9; O2SAT 95
[2023-09-17 22:00] VITALS: BP 103/72
[2023-09-18 06:00] VITALS: BP 105/62; TEMP 98.1; O2SAT 94
[2023-09-18 07:12] LABS: BASO % 0.5 % (0.0-1.0); EOS # 0.4 10^3/uL (0.0-0.5); EOS % 4.8 % (0.0-3.0); HEMATOCRIT 40.6 % (42.0-52.0); HEMOGLOBIN 12.5 g/dl (13.5-17.5); LYMPH # 0.7 10^3/uL (1.5-5.0); LYMPH % 9.4 % (24.0-44.0); MEAN CORPUSCULAR HEMOGLOBIN 27.5 pg (27.0-33.0); MEAN CORPUSCULAR HGB CONC 30.8 g/dl (32.0-36.5); MEAN CORPUSCULAR VOLUME 89.4 fl (80.0-96.0); MONO # 0.7 10^3/uL (0.0-0.8); MONO % 8.7 % (2.0-8.0); NEUTROPHILS # 5.9 10^3/uL (1.5-8.5); NEUTROPHILS % 76.3 % (36.0-66.0); PLATELET COUNT, AUTOMATED 111 10^3/uL (150-450); RED BLOOD COUNT 4.54 10^6/uL (4.30-6.10); WHITE BLOOD COUNT 7.7 10^3/uL (4.0-10.0)
[2023-09-18 07:42] LABS: BLOOD UREA NITROGEN 6 MG/DL (9-23); CALCIUM LEVEL 7.8 MG/DL (8.5-10.1); CARBON DIOXIDE LEVEL 26 MMOL/L (20-31); CHLORIDE LEVEL 108 MMOL/L (98-107); CREATININE FOR GFR 0.62 MG/DL (0.70-1.30); GLOMERULAR FILTRATION RATE > 60.0 (>56); GLUCOSE, FASTING 63 MG/DL (60-100); MAGNESIUM LEVEL 1.9 MG/DL (1.8-2.4); POTASSIUM SERUM 4.6 MMOL/L (3.5-5.1); SODIUM LEVEL 142 MMOL/L (136-145)
[2023-09-18] MEDS ORDERED: VARIBAR NECTAR 40% w/v 240ML SUSP BTL As Ordered ONE (12:07)
[2023-09-18] MEDS ORDERED: BARIUM SULFATE 700 MG TABLET (E-Z-DISK) As Ordered ONE (12:07)
[2023-09-18] MEDS ORDERED: VARIBAR PUDDING 40% w/v 230ML TUBE As Ordered ONE (12:07)
[2023-09-18] MEDS ORDERED: E-Z-PAQUE 96% w/w SUSP 176GM BTL As Ordered ONE (12:07)
[2023-09-18 14:00] VITALS: TEMP 98.2; O2SAT 98
[2023-09-19 06:00] VITALS: BP 107/63; TEMP 97.9; O2SAT 100
[2023-09-19 07:05] LABS: BASO % 0.5 % (0.0-1.0); EOS # 0.3 10^3/uL (0.0-0.5); EOS % 5.1 % (0.0-3.0); HEMATOCRIT 41.8 % (42.0-52.0); HEMOGLOBIN 12.8 g/dl (13.5-17.5); LYMPH % 18.9 % (24.0-44.0); MEAN CORPUSCULAR HEMOGLOBIN 27.7 pg (27.0-33.0); MEAN CORPUSCULAR HGB CONC 30.6 g/dl (32.0-36.5); MEAN CORPUSCULAR VOLUME 90.5 fl (80.0-96.0); MONO # 0.5 10^3/uL (0.0-0.8); MONO % 8.5 % (2.0-8.0); NEUTROPHILS # 3.7 10^3/uL (1.5-8.5); NEUTROPHILS % 66.8 % (36.0-66.0); PLATELET COUNT, AUTOMATED 101 10^3/uL (150-450); RED BLOOD COUNT 4.62 10^6/uL (4.30-6.10); WHITE BLOOD COUNT 5.5 10^3/uL (4.0-10.0)
[2023-09-19 07:47] LABS: BLOOD UREA NITROGEN 9 MG/DL (9-23); CALCIUM LEVEL 8.1 MG/DL (8.5-10.1); CARBON DIOXIDE LEVEL 22 MMOL/L (20-31); CHLORIDE LEVEL 108 MMOL/L (98-107); CREATININE FOR GFR 0.62 MG/DL (0.70-1.30); GLOMERULAR FILTRATION RATE > 60.0 (>56); GLUCOSE, FASTING 48 MG/DL (60-100); MAGNESIUM LEVEL 1.7 MG/DL (1.8-2.4); POTASSIUM SERUM 5.1 MMOL/L (3.5-5.1); SODIUM LEVEL 140 MMOL/L (136-145)
[2023-09-19] MEDS ORDERED: GLUCOSE 4GM CHEW TABLET PO PRN (08:05)
[2023-09-19] MEDS ORDERED: GLUCAGON INJ 1MG VIAL SC PRN (08:05)
[2023-09-19 08:30] VITALS: BP 108/56; TEMP 98.1; O2SAT 98
[2023-09-19] MEDS: DEXTROSE 50% 50ML SYRINGE IV PRN (08:40)
[2023-09-19] MEDS: D5W/0.45% SODIUM CHLORIDE 1,000 ML IV SCH (08:41)
[2023-09-19] MEDS: MAG SULF 1GM/100ML (MAG RUN) 1 GM in IV 1 EA IV SCH (10:12)
[2023-09-19 14:00] VITALS: BP 113/65; TEMP 97.9; O2SAT 99
[2023-09-19 22:00] VITALS: BP 113/68; TEMP 98.1; O2SAT 100
[2023-09-20 06:00] VITALS: BP 102/68; TEMP 98.2; O2SAT 99
[2023-09-20 07:37] LABS: BASO % 0.4 % (0.0-1.0); EOS # 0.3 10^3/uL (0.0-0.5); EOS % 6.1 % (0.0-3.0); HEMATOCRIT 40.4 % (42.0-52.0); HEMOGLOBIN 12.6 g/dl (13.5-17.5); LYMPH % 19.8 % (24.0-44.0); MEAN CORPUSCULAR HEMOGLOBIN 27.9 pg (27.0-33.0); MEAN CORPUSCULAR HGB CONC 31.2 g/dl (32.0-36.5); MEAN CORPUSCULAR VOLUME 89.6 fl (80.0-96.0); MONO # 0.6 10^3/uL (0.0-0.8); MONO % 11.1 % (2.0-8.0); NEUTROPHILS # 3.1 10^3/uL (1.5-8.5); NEUTROPHILS % 62.2 % (36.0-66.0); RED BLOOD COUNT 4.51 10^6/uL (4.30-6.10)
[2023-09-20 07:59] LABS: BLOOD UREA NITROGEN < 5 MG/DL (9-23); CALCIUM LEVEL 7.7 MG/DL (8.5-10.1); CARBON DIOXIDE LEVEL 22 MMOL/L (20-31); CHLORIDE LEVEL 107 MMOL/L (98-107); CREATININE FOR GFR 0.54 MG/DL (0.70-1.30); GLOMERULAR FILTRATION RATE > 60.0 (>56); GLUCOSE, FASTING 121 MG/DL (60-100); MAGNESIUM LEVEL 1.7 MG/DL (1.8-2.4); POTASSIUM SERUM 4.3 MMOL/L (3.5-5.1); SODIUM LEVEL 138 MMOL/L (136-145)
[2023-09-20 08:12] LABS: PLATELET COUNT, AUTOMATED 89 10^3/uL (150-450)
[2023-09-20] MEDS ORDERED: propofoL 200 MG/20 ML VIAL As Ordered ONE (11:23)
[2023-09-20] MEDS: MAG SULF 1GM/100ML (MAG RUN) 1 GM in IV 1 EA IV SCH (12:00)
[2023-09-20 14:00] VITALS: BP 128/81; TEMP 98.4; O2SAT 94
[2023-09-20] MEDS: MORPHINE 2 MG/ML 1ML VIAL IV PRN (15:24)
[2023-09-20 20:27] VITALS: BP 118/68; TEMP 98.1; O2SAT 94
[2023-09-21] MEDS: MORPHINE 2 MG/ML 1ML VIAL IV ONE (02:15)
[2023-09-21 05:08] VITALS: BP 119/68; TEMP 98.2; O2SAT 91
[2023-09-21 07:03] LABS: BASO % 0.3 % (0.0-1.0); EOS # 0.3 10^3/uL (0.0-0.5); EOS % 3.8 % (0.0-3.0); HEMATOCRIT 36.6 % (42.0-52.0); HEMOGLOBIN 11.9 g/dl (13.5-17.5); LYMPH % 13.3 % (24.0-44.0); MEAN CORPUSCULAR HEMOGLOBIN 27.5 pg (27.0-33.0); MEAN CORPUSCULAR HGB CONC 32.5 g/dl (32.0-36.5); MEAN CORPUSCULAR VOLUME 84.7 fl (80.0-96.0); MONO # 0.7 10^3/uL (0.0-0.8); MONO % 9.4 % (2.0-8.0); NEUTROPHILS # 5.5 10^3/uL (1.5-8.5); NEUTROPHILS % 73.1 % (36.0-66.0); PLATELET COUNT, AUTOMATED 100 10^3/uL (150-450); RED BLOOD COUNT 4.32 10^6/uL (4.30-6.10); WHITE BLOOD COUNT 7.6 10^3/uL (4.0-10.0)
[2023-09-21 07:34] LABS: BLOOD UREA NITROGEN < 5 MG/DL (9-23); CALCIUM LEVEL 7.6 MG/DL (8.5-10.1); CARBON DIOXIDE LEVEL 31 MMOL/L (20-31); CHLORIDE LEVEL 105 MMOL/L (98-107); CREATININE FOR GFR 0.56 MG/DL (0.70-1.30); GLOMERULAR FILTRATION RATE > 60.0 (>56); GLUCOSE, FASTING 122 MG/DL (60-100); MAGNESIUM LEVEL 1.7 MG/DL (1.8-2.4); POTASSIUM SERUM 3.5 MMOL/L (3.5-5.1); SODIUM LEVEL 141 MMOL/L (136-145)
[2023-09-21] MEDS: MAG SULF 1GM/100ML (MAG RUN) 1 GM in IV 1 EA IV SCH (09:53)
[2023-09-21 11:04] LABS: PHOSPHORUS LEVEL 1.3 MG/DL (2.5-4.9)
[2023-09-21] MEDS ORDERED: AUGMENTIN 875 MG TAB PO SCH (12:00)
[2023-09-21 14:00] VITALS: BP 122/67; TEMP 97.9; O2SAT 95
[2023-09-21] MEDS: AUGMENTIN 875 MG TAB PEG SCH (14:44)
[2023-09-21] MEDS: IPRATROPIUM 0.5MG/ALBUTEROL 2.5MG INH SOL UD 3ML (DUONEB) NEB SCH (15:37)
[2023-09-21] MEDS: POTASSIUM PHOSPHATE INJ 20 MMOL in D5W 250 ML IV ONE (18:59)
[2023-09-21 21:14] VITALS: BP 118/67; TEMP 97.5; O2SAT 97
[2023-09-22 06:09] VITALS: BP 115/68; TEMP 97.4; O2SAT 97
[2023-09-22 07:02] LABS: BASO % 0.3 % (0.0-1.0); EOS # 0.5 10^3/uL (0.0-0.5); EOS % 7.2 % (0.0-3.0); HEMATOCRIT 41.8 % (42.0-52.0); HEMOGLOBIN 13.6 g/dl (13.5-17.5); LYMPH % 14.3 % (24.0-44.0); MEAN CORPUSCULAR HGB CONC 32.5 g/dl (32.0-36.5); MONO # 0.6 10^3/uL (0.0-0.8); MONO % 8.9 % (2.0-8.0); NEUTROPHILS # 4.7 10^3/uL (1.5-8.5); PLATELET COUNT, AUTOMATED 110 10^3/uL (150-450); RED BLOOD COUNT 4.86 10^6/uL (4.30-6.10); WHITE BLOOD COUNT 6.9 10^3/uL (4.0-10.0)
[2023-09-22 07:23] LABS: BLOOD UREA NITROGEN < 5 MG/DL (9-23); CALCIUM LEVEL 8.8 MG/DL (8.5-10.1); CARBON DIOXIDE LEVEL 33 MMOL/L (20-31); CHLORIDE LEVEL 103 MMOL/L (98-107); CREATININE FOR GFR 0.51 MG/DL (0.70-1.30); GLOMERULAR FILTRATION RATE > 60.0 (>56); GLUCOSE, FASTING 99 MG/DL (60-100); PHOSPHORUS LEVEL 3.1 MG/DL (2.5-4.9); SODIUM LEVEL 142 MMOL/L (136-145)
[2023-09-22 14:00] VITALS: BP 113/68; TEMP 98.2; O2SAT 94
[2023-09-22 21:48] VITALS: BP 111/68; TEMP 98.2; O2SAT 96
[2023-09-23 06:11] VITALS: BP 106/65; TEMP 97.7; O2SAT 96
[2023-09-23 07:37] LABS: BASO % 0.5 % (0.0-1.0); EOS # 0.5 10^3/uL (0.0-0.5); EOS % 8.8 % (0.0-3.0); HEMATOCRIT 43.4 % (42.0-52.0); HEMOGLOBIN 13.9 g/dl (13.5-17.5); LYMPH # 0.9 10^3/uL (1.5-5.0); LYMPH % 15.4 % (24.0-44.0); MEAN CORPUSCULAR HEMOGLOBIN 27.4 pg (27.0-33.0); MEAN CORPUSCULAR VOLUME 85.4 fl (80.0-96.0); MONO # 0.6 10^3/uL (0.0-0.8); MONO % 9.6 % (2.0-8.0); NEUTROPHILS # 3.7 10^3/uL (1.5-8.5); NEUTROPHILS % 65.3 % (36.0-66.0); PLATELET COUNT, AUTOMATED 117 10^3/uL (150-450); RED BLOOD COUNT 5.08 10^6/uL (4.30-6.10); WHITE BLOOD COUNT 5.7 10^3/uL (4.0-10.0)
[2023-09-23 08:06] LABS: BLOOD UREA NITROGEN 11 MG/DL (9-23); CALCIUM LEVEL 8.8 MG/DL (8.5-10.1); CARBON DIOXIDE LEVEL 32 MMOL/L (20-31); CHLORIDE LEVEL 103 MMOL/L (98-107); CREATININE FOR GFR 0.52 MG/DL (0.70-1.30); GLOMERULAR FILTRATION RATE > 60.0 (>56); GLUCOSE, FASTING 116 MG/DL (60-100); MAGNESIUM LEVEL 1.7 MG/DL (1.8-2.4); PHOSPHORUS LEVEL 4.1 MG/DL (2.5-4.9); POTASSIUM SERUM 4.4 MMOL/L (3.5-5.1); SODIUM LEVEL 140 MMOL/L (136-145)
[2023-09-23] MEDS: MAGNESIUM OXIDE 400MG TAB (MAG-OX) PEG SCH (12:48)
[2023-09-23 14:00] VITALS: BP 105/64; TEMP 98.1; O2SAT 97
[2023-09-23 21:51] VITALS: BP 95/60; TEMP 97.5; O2SAT 92
[2023-09-24 05:44] VITALS: BP 111/70; TEMP 97.6; O2SAT 96
[2023-09-24 06:53] LABS: BLOOD UREA NITROGEN 13 MG/DL (9-23); CALCIUM LEVEL 8.4 MG/DL (8.5-10.1); CARBON DIOXIDE LEVEL 31 MMOL/L (20-31); CHLORIDE LEVEL 103 MMOL/L (98-107); CREATININE FOR GFR 0.57 MG/DL (0.70-1.30); GLOMERULAR FILTRATION RATE > 60.0 (>56); GLUCOSE, FASTING 122 MG/DL (60-100); MAGNESIUM LEVEL 1.7 MG/DL (1.8-2.4); PHOSPHORUS LEVEL 3.6 MG/DL (2.5-4.9); POTASSIUM SERUM 4.4 MMOL/L (3.5-5.1); SODIUM LEVEL 140 MMOL/L (136-145)
[2023-09-24 14:35] VITALS: BP 110/68; TEMP 97.7; O2SAT 97
[2023-09-24] MEDS ORDERED: LACTOBACILLUS ACIDOPHILUS CAP (BACID) PEG SCH (18:00)
[2023-09-24 21:25] VITALS: BP 99/61; TEMP 98.2; O2SAT 97
[2023-09-24 21:30] VITALS: BP 108/63; TEMP 97.7; O2SAT 96
[2023-09-24] MEDS: LACTOBACILLUS ACIDOPHILUS CAP (BACID) PEG SCH (21:40)
[2023-09-25] MEDS: METOCLOPRAMIDE INJ 10MG/2ML VIAL IV ONE (00:40)
[2023-09-25 06:29] VITALS: BP 101/62; TEMP 98.4; O2SAT 97
[2023-09-25 08:05] LABS: BASO % 0.4 % (0.0-1.0); EOS # 0.6 10^3/uL (0.0-0.5); EOS % 7.5 % (0.0-3.0); HEMATOCRIT 42.3 % (42.0-52.0); HEMOGLOBIN 13.8 g/dl (13.5-17.5); LYMPH # 0.7 10^3/uL (1.5-5.0); MEAN CORPUSCULAR HEMOGLOBIN 27.8 pg (27.0-33.0); MEAN CORPUSCULAR HGB CONC 32.6 g/dl (32.0-36.5); MEAN CORPUSCULAR VOLUME 85.3 fl (80.0-96.0); MONO # 0.7 10^3/uL (0.0-0.8); NEUTROPHILS # 6.4 10^3/uL (1.5-8.5); NEUTROPHILS % 75.7 % (36.0-66.0); PLATELET COUNT, AUTOMATED 144 10^3/uL (150-450); RED BLOOD COUNT 4.96 10^6/uL (4.30-6.10); WHITE BLOOD COUNT 8.4 10^3/uL (4.0-10.0)
[2023-09-25 08:06] LABS: BLOOD UREA NITROGEN 13 MG/DL (9-23); CARBON DIOXIDE LEVEL 31 MMOL/L (20-31); CHLORIDE LEVEL 101 MMOL/L (98-107); CREATININE FOR GFR 0.54 MG/DL (0.70-1.30); GLOMERULAR FILTRATION RATE > 60.0 (>56); GLUCOSE, FASTING 101 MG/DL (60-100); PHOSPHORUS LEVEL 3.1 MG/DL (2.5-4.9); POTASSIUM SERUM 4.3 MMOL/L (3.5-5.1); SODIUM LEVEL 137 MMOL/L (136-145)
[2023-09-25 14:20] VITALS: BP 103/62; TEMP 97.9; O2SAT 97
[2023-09-25] MEDS: SODIUM CHLORIDE 0.9% 1000ML IV ONE (14:49)
[2023-09-25 20:48] VITALS: BP_SYST 123; BP_SYST 130; BP_DIAS 78; BP_DIAS 90; TEMP 98.8; O2SAT 98
[2023-09-26 03:44] VITALS: BP 105/66; TEMP 98.1; O2SAT 93
[2023-09-26 07:44] VITALS: BP 112/60; TEMP 98.2; O2SAT 94
[2023-09-26] MEDS ORDERED: MAGN400T2 PO (13:04)
[2023-09-26] MEDS ORDERED: DOCU5LIQ PEG (14:15)
[2023-09-26] MEDS ORDERED: ACET160L16 PEG (14:15)
[2023-09-26] MEDS ORDERED: MAGN400T2 PEG (14:15)
[2023-09-26] MEDS ORDERED: POLY17PO10 PEG (14:17)
== END 2023-09-26 14:30 | disposition home or self-care (01) | DRG 178 ==
LOC: M ED 15:16 → M ED INP 20:40 → ENRESERV 22:01 → M MS5PR 22:54
PROVIDERS: ADMIT Internal Medicine; ATTEND Internal Medicine
PROC: 0DH63UZ Insertion of Feeding Device into Stomach, Percutaneous Approach (ICD-10-PCS; principal; 2023-09-20 13:50)
DX: J69.0 Pneumonitis due to inhalation of food and vomit (principal); Z43.1 Encounter for attention to gastrostomy; Z68.1 Body mass index [BMI] 19.9 or less, adult; R13.12 Dysphagia, oropharyngeal phase; G80.9 Cerebral palsy, unspecified; E53.8 Deficiency of other specified B group vitamins; F79 Unspecified intellectual disabilities; J45.909 Unspecified asthma, uncomplicated; R63.6 Underweight; G89.29 Other chronic pain; M54.9 Dorsalgia, unspecified; E83.39 Other disorders of phosphorus metabolism; E83.42 Hypomagnesemia; E16.2 Hypoglycemia, unspecified; Z79.899 Other long term (current) drug therapy; Z88.2 Allergy status to sulfonamides; Z11.52 Encounter for screening for COVID-19

== ENCOUNTER 2023-10-01 10:53 | Inpatient (IN) | payer MEDICARE, MEDICAID ==
[~2023-10-01] VITALS: Ht 162.6 cm; Wt 42.7 kg
[~2023-10-01 10:53] MED LIST changes: +ACET160L16 PEG; +ACET160L16 PO; +ALBU2.5V10 INH; +AZEL1SPR3 NARES; +DESI13CR2 TOP; +DOCU5LIQ PEG; +DOCU5LIQ PO; +MAGN400T2 PEG; +MAGN400T2 PO; +POLY17PO10 PEG; +POLY17PO10 PO
[2023-10-01 11:54] LABS: BASO % 0.2 % (0.0-1.0); EOS # 0.2 10^3/uL (0.0-0.5); EOS % 0.9 % (0.0-3.0); HEMATOCRIT 44.2 % (42.0-52.0); HEMOGLOBIN 13.9 g/dl (13.5-17.5); LYMPH # 0.9 10^3/uL (1.5-5.0); LYMPH % 5.6 % (24.0-44.0); MEAN CORPUSCULAR HEMOGLOBIN 27.5 pg (27.0-33.0); MEAN CORPUSCULAR HGB CONC 31.4 g/dl (32.0-36.5); MEAN CORPUSCULAR VOLUME 87.4 fl (80.0-96.0); MONO # 1.4 10^3/uL (0.0-0.8); MONO % 8.7 % (2.0-8.0); NEUTROPHILS # 13.7 10^3/uL (1.5-8.5); NEUTROPHILS % 84.2 % (36.0-66.0); PLATELET COUNT, AUTOMATED 230 10^3/uL (150-450); RED BLOOD COUNT 5.06 10^6/uL (4.30-6.10); WHITE BLOOD COUNT 16.3 10^3/uL (4.0-10.0)
[2023-10-01 12:06] LABS: INR 1.17; PARTIAL THROMBOPLASTIN TIME 28.9 SECONDS (24.8-34.2); PROTHROMBIN TIME 14.6 SECONDS (12.5-14.5)
[2023-10-01 12:14] LABS: LIPASE 43 U/L (12-53)
[2023-10-01 12:16] LABS: ALBUMIN 3.7 G/DL (3.2-5.2); ALKALINE PHOSPHATASE 63 U/L (46-116); ALT/SGPT 22 U/L (7.0-40); AMYLASE 119 U/L (30-118); AST/SGOT 16 U/L (<34); BILIRUBIN,DIRECT 0.1 MG/DL (<0.4); BILIRUBIN,TOTAL 0.4 MG/DL (0.3-1.2); TOTAL PROTEIN 7.3 G/DL (5.7-8.2)
[2023-10-01] MEDS ORDERED: POLY510P14 PEG (13:45)
[2023-10-01] MEDS ORDERED: DOCU5LIQ PEG (13:45)
[2023-10-01] MEDS: ACETAMINOPHEN TAB 650MG DOSE (2X325MG) PEG ONE (14:32)
[2023-10-01] MEDS: IPRATROPIUM 0.5MG/ALBUTEROL 2.5MG INH SOL UD 3ML (DUONEB) NEB PRN (15:48)
[2023-10-01] MEDS: NS 1,000 ML IV ONE ×2 (16:40→20:01)
[2023-10-01] MEDS: KETOROLAC 30 MG/ML 1ML VIAL IV ONE ×2 (16:41→18:40)
[2023-10-01] MEDS ORDERED: DOCU5LIQ GT (16:51)
[2023-10-01] MEDS ORDERED: TGTSUS2 PO (16:51)
[2023-10-01] MEDS ORDERED: HOME MED LIST COMPLETE! XX SCH (16:55)
[2023-10-01 17:25] LABS: PROCALCITONIN <0.04 ng/ml
[2023-10-01] MEDS ORDERED: ISOVUE-370 76% 100ML VIAL As Ordered ONE (17:38)
[2023-10-01 17:40] LABS: BLOOD UREA NITROGEN 16 MG/DL (9-23); CALCIUM LEVEL 7.8 MG/DL (8.5-10.1); CARBON DIOXIDE LEVEL 31 MMOL/L (20-31); CHLORIDE LEVEL 102 MMOL/L (98-107); CREATININE FOR GFR 0.53 MG/DL (0.70-1.30); GLOMERULAR FILTRATION RATE > 60.0 (>56); GLUCOSE, FASTING 109 MG/DL (60-100); SODIUM LEVEL 139 MMOL/L (136-145)
[2023-10-01 17:45] LABS: PREALBUMIN 16.3 MG/DL (10.0-40.0)
[2023-10-01 18:00] VITALS: BP 135/77; TEMP 97.3; O2SAT 92
[2023-10-01] MEDS ORDERED: guaiFENesin DM LIQ 10ML UD PO SCH (18:00)
[2023-10-01] MEDS: PIPERACILLIN/TAZOBACTAM SOD 4.5 GM in D5W MINI-BAG PLUS 50 ML IV SCH (18:39)
[2023-10-01] MEDS: ENOXAPARIN 40MG/0.4ML SYRINGE (J1650 PER 10MG) SC ONE (18:44)
[2023-10-01] MEDS: MOM 30ML SUSPENSION UDC PEG SCH (18:47)
[2023-10-01] MEDS: LEVALBUTEROL 1.25MG 0.5ML CONCENTRATE NEB INH SCH (19:16)
[2023-10-01] MEDS: guaiFENesin DM LIQ 10ML UD PEG SCH (19:21)
[2023-10-01 20:00] VITALS: O2SAT 87
[2023-10-01 20:30] VITALS: BP 106/50; TEMP 97.9; O2SAT 93
[2023-10-01] MEDS: VANCOMYCIN HCL 1,000 MG, VIAL MATE ADAPTER 1 EACH in D5W 250 ML IV SCH (21:30)
[2023-10-01] MEDS: NS 1,000 ML IV SCH (21:31)
[2023-10-01] MEDS: DOCUSATE SOD LIQ 100MG/10ML UDC GT SCH (21:37)
[2023-10-01] MEDS: ACETAMINOPHEN 325MG/10.15ML UDC GT PRN (23:28)
[2023-10-02] VITALS (11 sets, daily range): BP systolic 88–121; BP diastolic 42–70; TEMP 97.7–101.3; O2SAT 88–98
[2023-10-02 06:33] LABS: BASO % 0.2 % (0.0-1.0); EOS # 0.5 10^3/uL (0.0-0.5); EOS % 2.7 % (0.0-3.0); HEMATOCRIT 35.6 % (42.0-52.0); LYMPH # 0.9 10^3/uL (1.5-5.0); LYMPH % 5.3 % (24.0-44.0); MEAN CORPUSCULAR HEMOGLOBIN 27.6 pg (27.0-33.0); MEAN CORPUSCULAR HGB CONC 31.5 g/dl (32.0-36.5); MEAN CORPUSCULAR VOLUME 87.7 fl (80.0-96.0); MONO # 1.1 10^3/uL (0.0-0.8); MONO % 6.6 % (2.0-8.0); NEUTROPHILS # 14.7 10^3/uL (1.5-8.5); NEUTROPHILS % 84.8 % (36.0-66.0); PLATELET COUNT, AUTOMATED 185 10^3/uL (150-450); RED BLOOD COUNT 4.06 10^6/uL (4.30-6.10); WHITE BLOOD COUNT 17.3 10^3/uL (4.0-10.0)
[2023-10-02 06:39] LABS: HEMOGLOBIN 11.2 g/dl (13.5-17.5)
[2023-10-02 06:49] LABS: BLOOD UREA NITROGEN 12 MG/DL (9-23); CALCIUM LEVEL 7.1 MG/DL (8.5-10.1); CARBON DIOXIDE LEVEL 31 MMOL/L (20-31); CHLORIDE LEVEL 106 MMOL/L (98-107); CREATININE FOR GFR 0.61 MG/DL (0.70-1.30); GLOMERULAR FILTRATION RATE > 60.0 (>56); GLUCOSE, FASTING 119 MG/DL (60-100); POTASSIUM SERUM 4.5 MMOL/L (3.5-5.1); SODIUM LEVEL 142 MMOL/L (136-145)
[2023-10-02] MEDS: MOM 30ML SUSPENSION UDC PEG SCH (07:36)
[2023-10-02] MEDS: ENOXAPARIN 40MG/0.4ML SYRINGE (J1650 PER 10MG) SC SCH (08:00)
[2023-10-02] MEDS: NS 500 ML IV ONE (09:51)
[2023-10-02] MEDS: MIDODRINE 5 MG TAB PO ONE (09:52)
[2023-10-02] MEDS: METOPROLOL TART 25 MG TABLET PO SCH (11:33)
[2023-10-02] MEDS: NS 1,000 ML IV ONE ×4 (14:39→22:33)
[2023-10-02 14:43] LABS: PROCALCITONIN 0.09 ng/ml
[2023-10-02 15:16] LABS: ERYTHROCYTE SEDIMENTATION RATE 17 mm/hr (0-20)
[2023-10-02] MEDS: DOXYCYCLINE HYCLATE 100 MG in D5W MINI-BAG PLUS 100 ML IV SCH (15:26)
[2023-10-02] MEDS: DIGOXIN INJ 0.5 MG/2 ML AMP IV ONE (18:11)
[2023-10-02] MEDS: MIDODRINE 5 MG TAB PEG ONE (18:11)
[2023-10-02] MEDS: NS 1,000 ML IV SCH (19:39)
[2023-10-02] MEDS: KETOROLAC 30 MG/ML 1ML VIAL IV ONE (20:16)
[2023-10-02] MEDS ORDERED: NS 500 ML IV ONE (21:35)
[2023-10-03] VITALS (8 sets, daily range): BP systolic 109–121; BP diastolic 62–76; TEMP 98.2–99.1; O2SAT 93–98
[2023-10-03] MEDS: SCOPOLAMINE 1MG TRANSDERMAL PATCH TOP ONE (01:31)
[2023-10-03] MEDS: KETOROLAC 30 MG/ML 1ML VIAL IV ONE (02:30)
[2023-10-03 06:14] LABS: BASO % 0.3 % (0.0-1.0); EOS # 0.4 10^3/uL (0.0-0.5); EOS % 2.6 % (0.0-3.0); HEMATOCRIT 31.9 % (42.0-52.0); HEMOGLOBIN 10.2 g/dl (13.5-17.5); LYMPH # 0.5 10^3/uL (1.5-5.0); LYMPH % 3.8 % (24.0-44.0); MEAN CORPUSCULAR VOLUME 87.6 fl (80.0-96.0); MONO # 0.7 10^3/uL (0.0-0.8); MONO % 5.1 % (2.0-8.0); NEUTROPHILS # 12.4 10^3/uL (1.5-8.5); NEUTROPHILS % 87.9 % (36.0-66.0); PLATELET COUNT, AUTOMATED 161 10^3/uL (150-450); RED BLOOD COUNT 3.64 10^6/uL (4.30-6.10); WHITE BLOOD COUNT 14.1 10^3/uL (4.0-10.0)
[2023-10-03 07:25] LABS: BLOOD UREA NITROGEN 7 MG/DL (9-23); CALCIUM LEVEL 6.4 MG/DL (8.5-10.1); CARBON DIOXIDE LEVEL 28 MMOL/L (20-31); CHLORIDE LEVEL 112 MMOL/L (98-107); CREATININE FOR GFR 0.52 MG/DL (0.70-1.30); GLOMERULAR FILTRATION RATE > 60.0 (>56); GLUCOSE, FASTING 148 MG/DL (60-100); MAGNESIUM LEVEL 1.7 MG/DL (1.8-2.4); PHOSPHORUS LEVEL 2.4 MG/DL (2.5-4.9); POTASSIUM SERUM 3.9 MMOL/L (3.5-5.1); SODIUM LEVEL 144 MMOL/L (136-145)
[2023-10-03] MEDS: DIGOXIN INJ 0.5 MG/2 ML AMP IV STA (07:38)
[2023-10-03] MEDS: MIDODRINE 5 MG TAB PEG ONE ×2 (08:13→13:14)
[2023-10-03 08:25] LABS: IMMUNOGLOBULIN A 301.7 MG/DL (40-350); IMMUNOGLOBULIN G 728 MG/DL (650-1600)
[2023-10-03] MEDS: NEUTRA-PHOS 1.5 GM PACKET PEG SCH (13:13)
[2023-10-03] MEDS: CALCIUM GLUCONATE 1,000 MG in D5W MINI-BAG PLUS 100 ML IV ONE (13:13)
[2023-10-03] MEDS: POTASSIUM CHLORIDE 10% LIQ 20MEQ/15ML UDC PO ONE (13:15)
[2023-10-03] MEDS: metOLazone 2.5 MG TAB PO ONE (13:17)
[2023-10-03] MEDS: FUROSEMIDE 20MG/2ML VIAL IV ONE (14:20)
[2023-10-03] MEDS: MAG SULF 1GM/100ML (MAG RUN) 1 GM in IV 1 EA IV ONE (14:20)
[2023-10-03] MEDS: MIDODRINE 5 MG TAB PO SCH (15:38)
[2023-10-03 20:23] LABS: IONIZED CALCIUM 3.9 MG/DL (4.5-5.3)
[2023-10-03 21:00] LABS: MAGNESIUM LEVEL 1.8 MG/DL (1.8-2.4); POTASSIUM SERUM 4.1 MMOL/L (3.5-5.1)
[2023-10-04] VITALS (7 sets, daily range): BP systolic 101–124; BP diastolic 56–76; TEMP 98.2–99; O2SAT 88–98
[2023-10-04 06:26] LABS: BASO # 0.1 10^3/uL (0.0-0.2); BASO % 0.5 % (0.0-1.0); EOS # 0.8 10^3/uL (0.0-0.5); EOS % 6.4 % (0.0-3.0); HEMATOCRIT 34.9 % (42.0-52.0); HEMOGLOBIN 11.2 g/dl (13.5-17.5); LYMPH # 0.8 10^3/uL (1.5-5.0); LYMPH % 6.4 % (24.0-44.0); MEAN CORPUSCULAR HEMOGLOBIN 27.7 pg (27.0-33.0); MEAN CORPUSCULAR HGB CONC 32.1 g/dl (32.0-36.5); MEAN CORPUSCULAR VOLUME 86.2 fl (80.0-96.0); MONO # 0.7 10^3/uL (0.0-0.8); MONO % 5.7 % (2.0-8.0); NEUTROPHILS # 9.8 10^3/uL (1.5-8.5); NEUTROPHILS % 80.6 % (36.0-66.0); PLATELET COUNT, AUTOMATED 208 10^3/uL (150-450); RED BLOOD COUNT 4.05 10^6/uL (4.30-6.10); WHITE BLOOD COUNT 12.1 10^3/uL (4.0-10.0)
[2023-10-04 06:49] LABS: BLOOD UREA NITROGEN 9 MG/DL (9-23); CALCIUM LEVEL 7.6 MG/DL (8.5-10.1); CARBON DIOXIDE LEVEL 34 MMOL/L (20-31); CHLORIDE LEVEL 101 MMOL/L (98-107); GLOMERULAR FILTRATION RATE > 60.0 (>56); GLUCOSE, FASTING 151 MG/DL (60-100); MAGNESIUM LEVEL 1.7 MG/DL (1.8-2.4); PHOSPHORUS LEVEL 3.6 MG/DL (2.5-4.9); SODIUM LEVEL 141 MMOL/L (136-145)
[2023-10-04] MEDS ORDERED: DOXYCYCLINE HYCLATE 100MG TABLET PO SCH (09:00)
[2023-10-04] MEDS: MAG SULF 1GM/100ML (MAG RUN) 1 GM in IV 1 EA IV ONE (09:43)
[2023-10-04] MEDS ORDERED: PILL CUTTER 1 EACH XX ONE (11:14)
[2023-10-04] MEDS: metOLazone 2.5 MG TAB PEG ONE (11:18)
[2023-10-04] MEDS: FUROSEMIDE 20 MG TAB PEG ONE (11:30)
[2023-10-04] MEDS: IBUPROFEN 100MG 5ML SUSP UDC DYE FREE PO PRN (16:33)
[2023-10-04] MEDS: MOXIFLOXACIN 400 MG TAB PEG SCH (18:25)
[2023-10-05 06:00] VITALS: BP 122/81; TEMP 98.6; O2SAT 91
[2023-10-05 06:18] LABS: BASO # 0.1 10^3/uL (0.0-0.2); BASO % 0.5 % (0.0-1.0); EOS # 0.7 10^3/uL (0.0-0.5); EOS % 6.9 % (0.0-3.0); HEMATOCRIT 38.7 % (42.0-52.0); HEMOGLOBIN 12.5 g/dl (13.5-17.5); LYMPH # 1.2 10^3/uL (1.5-5.0); LYMPH % 11.1 % (24.0-44.0); MEAN CORPUSCULAR HEMOGLOBIN 27.7 pg (27.0-33.0); MEAN CORPUSCULAR HGB CONC 32.3 g/dl (32.0-36.5); MEAN CORPUSCULAR VOLUME 85.6 fl (80.0-96.0); MONO # 0.9 10^3/uL (0.0-0.8); NEUTROPHILS # 7.5 10^3/uL (1.5-8.5); NEUTROPHILS % 72.1 % (36.0-66.0); PLATELET COUNT, AUTOMATED 232 10^3/uL (150-450); RED BLOOD COUNT 4.52 10^6/uL (4.30-6.10); WHITE BLOOD COUNT 10.4 10^3/uL (4.0-10.0)
[2023-10-05 06:49] LABS: BLOOD UREA NITROGEN 13 MG/DL (9-23); CALCIUM LEVEL 8.5 MG/DL (8.5-10.1); CARBON DIOXIDE LEVEL 36 MMOL/L (20-31); CHLORIDE LEVEL 100 MMOL/L (98-107); CREATININE FOR GFR 0.64 MG/DL (0.70-1.30); GLOMERULAR FILTRATION RATE > 60.0 (>56); GLUCOSE, FASTING 88 MG/DL (60-100); MAGNESIUM LEVEL 1.9 MG/DL (1.8-2.4); PHOSPHORUS LEVEL 4.5 MG/DL (2.5-4.9); POTASSIUM SERUM 4.5 MMOL/L (3.5-5.1); SODIUM LEVEL 139 MMOL/L (136-145)
[2023-10-05 09:20] LABS: PROCALCITONIN 0.42 ng/ml
[2023-10-05] MEDS ORDERED: MAG SULF 1GM/100ML (MAG RUN) 1 GM in IV 1 EA IV ONE (10:00)
[2023-10-05] MEDS ORDERED: MOXI400T11 PEG (10:13)
[2023-10-05] MEDS ORDERED: metOLazone 2.5 MG TAB PO ONE (11:00)
[2023-10-05] MEDS ORDERED: FUROSEMIDE 20MG/2ML VIAL IV ONE (11:30)
[2023-10-05 14:00] VITALS: BP 125/74; TEMP 99; O2SAT 91
[2023-10-05] MEDS ORDERED: LEVALBUTEROL 1.25MG 0.5ML CONCENTRATE NEB INH PRN (16:55)
[2023-10-05 20:00] VITALS: BP 127/75; TEMP 97.5; O2SAT 91
[2023-10-06 06:00] VITALS: BP 110/66; TEMP 98.2; O2SAT 90
[2023-10-06 06:34] LABS: BASO % 0.6 % (0.0-1.0); EOS # 0.5 10^3/uL (0.0-0.5); EOS % 6.8 % (0.0-3.0); HEMATOCRIT 40.1 % (42.0-52.0); LYMPH # 1.3 10^3/uL (1.5-5.0); LYMPH % 18.3 % (24.0-44.0); MEAN CORPUSCULAR HEMOGLOBIN 27.3 pg (27.0-33.0); MEAN CORPUSCULAR HGB CONC 32.4 g/dl (32.0-36.5); MEAN CORPUSCULAR VOLUME 84.2 fl (80.0-96.0); MONO # 0.9 10^3/uL (0.0-0.8); MONO % 11.8 % (2.0-8.0); NEUTROPHILS # 4.5 10^3/uL (1.5-8.5); NEUTROPHILS % 61.9 % (36.0-66.0); PLATELET COUNT, AUTOMATED 244 10^3/uL (150-450); RED BLOOD COUNT 4.76 10^6/uL (4.30-6.10); WHITE BLOOD COUNT 7.2 10^3/uL (4.0-10.0)
[2023-10-06 06:54] LABS: BLOOD UREA NITROGEN 15 MG/DL (9-23); CALCIUM LEVEL 8.7 MG/DL (8.5-10.1); CARBON DIOXIDE LEVEL 35 MMOL/L (20-31); CHLORIDE LEVEL 100 MMOL/L (98-107); CREATININE FOR GFR 0.57 MG/DL (0.70-1.30); GLOMERULAR FILTRATION RATE > 60.0 (>56); GLUCOSE, FASTING 90 MG/DL (60-100); MAGNESIUM LEVEL 1.8 MG/DL (1.8-2.4); PHOSPHORUS LEVEL 4.3 MG/DL (2.5-4.9); POTASSIUM SERUM 4.4 MMOL/L (3.5-5.1); SODIUM LEVEL 140 MMOL/L (136-145)
[2023-10-06] MEDS: DIGOXIN INJ 0.5 MG/2 ML AMP IV STA (09:53)
[2023-10-06 12:25] VITALS: BP 108/72
[2023-10-06 14:00] VITALS: TEMP 98.1; O2SAT 94
[2023-10-06 16:20] VITALS: BP 114/76
[2023-10-06] MEDS: DIGOXIN INJ 0.5 MG/2 ML AMP IV SCH (16:20)
[2023-10-06 20:45] VITALS: BP 115/76; TEMP 98.8; O2SAT 91
[2023-10-07 05:36] VITALS: BP 110/74; TEMP 98.2; O2SAT 93
[2023-10-07 06:50] LABS: BASO # 0.1 10^3/uL (0.0-0.2); BASO % 1.1 % (0.0-1.0); EOS # 0.4 10^3/uL (0.0-0.5); EOS % 5.3 % (0.0-3.0); HEMATOCRIT 37.8 % (42.0-52.0); HEMOGLOBIN 12.3 g/dl (13.5-17.5); LYMPH # 1.1 10^3/uL (1.5-5.0); LYMPH % 13.1 % (24.0-44.0); MEAN CORPUSCULAR HEMOGLOBIN 27.5 pg (27.0-33.0); MEAN CORPUSCULAR HGB CONC 32.5 g/dl (32.0-36.5); MEAN CORPUSCULAR VOLUME 84.4 fl (80.0-96.0); MONO # 0.9 10^3/uL (0.0-0.8); MONO % 10.7 % (2.0-8.0); NEUTROPHILS # 5.7 10^3/uL (1.5-8.5); NEUTROPHILS % 68.4 % (36.0-66.0); PLATELET COUNT, AUTOMATED 232 10^3/uL (150-450); RED BLOOD COUNT 4.48 10^6/uL (4.30-6.10); WHITE BLOOD COUNT 8.3 10^3/uL (4.0-10.0)
[2023-10-07 07:09] LABS: DIGOXIN LEVEL 0.7 NG/ML (0.8-2.0)
[2023-10-07 07:11] LABS: BLOOD UREA NITROGEN 23 MG/DL (9-23); CALCIUM LEVEL 8.3 MG/DL (8.5-10.1); CARBON DIOXIDE LEVEL 34 MMOL/L (20-31); CHLORIDE LEVEL 100 MMOL/L (98-107); CREATININE FOR GFR 0.62 MG/DL (0.70-1.30); GLOMERULAR FILTRATION RATE > 60.0 (>56); GLUCOSE, FASTING 105 MG/DL (60-100); MAGNESIUM LEVEL 1.8 MG/DL (1.8-2.4); POTASSIUM SERUM 4.1 MMOL/L (3.5-5.1); SODIUM LEVEL 139 MMOL/L (136-145)
[2023-10-07] MEDS ORDERED: DIGOXIN INJ 0.5 MG/2 ML AMP IV SCH (08:25)
[2023-10-07] MEDS ORDERED: SELF1KIT MC (08:35)
[2023-10-07] MEDS ORDERED: MIDO10TA PO (08:35)
[2023-10-07] MEDS ORDERED: DIGO0.123 PO (08:35)
[2023-10-07] MEDS: DIGOXIN INJ 0.5 MG/2 ML AMP IV ONE (10:19)
[2023-10-07 12:30] VITALS: BP 106/69
[2023-10-07] MEDS: DIGOXIN 0.125 MG TAB PEG STA (12:35)
[2023-10-07 14:00] VITALS: BP 115/64; TEMP 98.6; O2SAT 93
[2023-10-07 16:41] VITALS: BP 111/67
[2023-10-07 22:00] VITALS: BP 115/68; TEMP 98.6; O2SAT 93
[2023-10-08 06:00] VITALS: TEMP 98.1; O2SAT 96
[2023-10-08 06:56] LABS: BASO # 0.1 10^3/uL (0.0-0.2); BASO % 1.1 % (0.0-1.0); EOS # 0.6 10^3/uL (0.0-0.5); EOS % 7.3 % (0.0-3.0); HEMATOCRIT 41.6 % (42.0-52.0); HEMOGLOBIN 13.3 g/dl (13.5-17.5); LYMPH # 1.7 10^3/uL (1.5-5.0); LYMPH % 19.7 % (24.0-44.0); MEAN CORPUSCULAR HEMOGLOBIN 27.4 pg (27.0-33.0); MEAN CORPUSCULAR VOLUME 85.8 fl (80.0-96.0); MONO # 1.1 10^3/uL (0.0-0.8); MONO % 12.6 % (2.0-8.0); NEUTROPHILS # 4.9 10^3/uL (1.5-8.5); NEUTROPHILS % 56.8 % (36.0-66.0); PLATELET COUNT, AUTOMATED 242 10^3/uL (150-450); RED BLOOD COUNT 4.85 10^6/uL (4.30-6.10); WHITE BLOOD COUNT 8.7 10^3/uL (4.0-10.0)
[2023-10-08 07:20] LABS: BLOOD UREA NITROGEN 20 MG/DL (9-23); CALCIUM LEVEL 8.5 MG/DL (8.5-10.1); CARBON DIOXIDE LEVEL 35 MMOL/L (20-31); CHLORIDE LEVEL 100 MMOL/L (98-107); CREATININE FOR GFR 0.65 MG/DL (0.70-1.30); GLOMERULAR FILTRATION RATE > 60.0 (>56); GLUCOSE, FASTING 116 MG/DL (60-100); POTASSIUM SERUM 4.7 MMOL/L (3.5-5.1); SODIUM LEVEL 140 MMOL/L (136-145)
[2023-10-08 08:00] VITALS: BP 118/67
[2023-10-08] MEDS ORDERED: DIGO0.123 PEG (09:09)
[2023-10-08] MEDS ORDERED: MIDO10TA PEG (09:09)
== END 2023-10-08 11:42 | disposition home or self-care (01) | DRG 871 ==
LOC: M ED 10:53 → M ED INP 16:21 → ENRESERV 16:37 → M MS5PR 17:45 → M MSPAV 10-02 09:55
PROVIDERS: ADMIT General Practice; ATTEND General Practice
PROC: B246ZZZ Ultrasonography of Right and Left Heart (ICD-10-PCS; principal; 2023-10-04)
DX: A41.9 Sepsis, unspecified organism (principal); J69.0 Pneumonitis due to inhalation of food and vomit; J15.69 Pneumonia due to other Gram-negative bacteria; J96.01 Acute respiratory failure with hypoxia; E87.3 Alkalosis; Z68.1 Body mass index [BMI] 19.9 or less, adult; G80.9 Cerebral palsy, unspecified; F79 Unspecified intellectual disabilities; K59.00 Constipation, unspecified; R13.12 Dysphagia, oropharyngeal phase; D69.6 Thrombocytopenia, unspecified; K59.09 Other constipation; I27.20 Pulmonary hypertension, unspecified; J32.9 Chronic sinusitis, unspecified; R63.6 Underweight; E53.8 Deficiency of other specified B group vitamins; J45.909 Unspecified asthma, uncomplicated; E83.39 Other disorders of phosphorus metabolism; E83.51 Hypocalcemia; E83.42 Hypomagnesemia; E87.70 Fluid overload, unspecified; I08.3 Combined rheumatic disorders of mitral, aortic and tricuspid valves; Z79.899 Other long term (current) drug therapy; Z88.2 Allergy status to sulfonamides; Z93.1 Gastrostomy status

== ENCOUNTER → 2023-10-11 | Outpatient (CLI) | payer MEDICARE, MEDICAID ==
[~2023-10-11] MED LIST changes: +DIGO0.123 PEG; +DIGO0.123 PO; +DOCU5LIQ GT; +MIDO10TA PEG; +MIDO10TA PO; +MOXI400T11 PEG; +POLY510P14 PEG; +SELF1KIT MC; +TGTSUS2 PO
== END ==
LOC: M PLAIMG 10:08
PROVIDERS: ATTEND Internal Medicine Pulmonary Disease
DX: R91.8 Other nonspecific abnormal finding of lung field (principal); Z53.9 Procedure and treatment not carried out, unspecified reason

== ENCOUNTER → 2023-10-13 | Outpatient (REF) | payer MEDICARE, MEDICAID | LOC: M SFHCADAM 14:22 | PROVIDERS: ATTEND Physician Assistant | DX: Z93.1 Gastrostomy status (principal); J69.0 Pneumonitis due to inhalation of food and vomit; E53.8 Deficiency of other specified B group vitamins; K59.00 Constipation, unspecified; I47.19 Other supraventricular tachycardia; R68.89 Other general symptoms and signs ==

== ENCOUNTER → 2023-11-02 | Outpatient (REF) | payer MEDICARE, MEDICAID ==
[2023-11-02 14:32] LABS: VITAMIN B12 LEVEL 1104 PG/ML (211-911)
[2023-11-02 14:40] LABS: ALKALINE PHOSPHATASE 56 U/L (46-116); ALT/SGPT 49 U/L (7.0-40); AST/SGOT 43 U/L (<34); BILIRUBIN,TOTAL 0.5 MG/DL (0.3-1.2); BLOOD UREA NITROGEN 17 MG/DL (9-23); CARBON DIOXIDE LEVEL 32 MMOL/L (20-31); CHLORIDE LEVEL 102 MMOL/L (98-107); CREATININE FOR GFR 0.58 MG/DL (0.70-1.30); FOLATE > 24.0 NG/ML (>5.4); GLOMERULAR FILTRATION RATE > 60.0 (>56); GLUCOSE, FASTING 75 MG/DL (60-100); MAGNESIUM LEVEL 1.8 MG/DL (1.8-2.4); POTASSIUM SERUM 5.2 MMOL/L (3.5-5.1); SODIUM LEVEL 143 MMOL/L (136-145); TOTAL PROTEIN 7.2 G/DL (5.7-8.2)
== END ==
LOC: M SFHCADAM 08:14
PROVIDERS: ATTEND Physician Assistant
DX: Z93.1 Gastrostomy status (principal); J69.0 Pneumonitis due to inhalation of food and vomit; E53.8 Deficiency of other specified B group vitamins; K59.00 Constipation, unspecified; I47.19 Other supraventricular tachycardia; R68.89 Other general symptoms and signs; Z12.11 Encounter for screening for malignant neoplasm of colon

== ENCOUNTER → 2023-11-03 | Outpatient (REF) | payer MEDICARE, MEDICAID ==
[2023-11-03 18:28] LABS: BASO # 0.1 10^3/uL (0.0-0.2); BASO % 0.8 % (0.0-1.0); EOS # 0.3 10^3/uL (0.0-0.5); EOS % 5.1 % (0.0-3.0); LYMPH # 1.1 10^3/uL (1.5-5.0); MEAN CORPUSCULAR HEMOGLOBIN 28.1 pg (27.0-33.0); MEAN CORPUSCULAR HGB CONC 31.7 g/dl (32.0-36.5); MEAN CORPUSCULAR VOLUME 88.7 fl (80.0-96.0); MONO # 0.7 10^3/uL (0.0-0.8); MONO % 11.1 % (2.0-8.0); NEUTROPHILS # 4.1 10^3/uL (1.5-8.5); NEUTROPHILS % 65.7 % (36.0-66.0); PLATELET COUNT, AUTOMATED 105 10^3/uL (150-450); RED BLOOD COUNT 4.62 10^6/uL (4.30-6.10); WHITE BLOOD COUNT 6.3 10^3/uL (4.0-10.0)
== END ==
LOC: M SFHCADAM 17:22
PROVIDERS: ATTEND Physician Assistant
DX: Z93.1 Gastrostomy status (principal); J69.0 Pneumonitis due to inhalation of food and vomit; E53.8 Deficiency of other specified B group vitamins; K59.00 Constipation, unspecified; I47.19 Other supraventricular tachycardia; R68.89 Other general symptoms and signs

== ENCOUNTER → 2023-11-09 | Outpatient (REF) | payer MEDICARE, MEDICAID ==
[2023-11-09 19:25] LABS: PERCENT SATURATION 13.4 % (19.7-50.0)
[2023-11-09 19:27] LABS: FERRITIN 34.9 NG/ML (10.5-307.3)
[2023-11-14 12:17] LABS: PSA SCREENING 0.39 NG/ML (< 4.00)
== END ==
LOC: M SFHCADAM 13:45
PROVIDERS: ATTEND Physician Assistant
DX: D64.9 Anemia, unspecified (principal); Z12.5 Encounter for screening for malignant neoplasm of prostate

== ENCOUNTER → 2023-11-27 | Outpatient (REF) | payer MEDICARE, MEDICAID | LOC: M SFHCADAM 12:14 | PROVIDERS: ATTEND Physician Assistant | DX: J06.9 Acute upper respiratory infection, unspecified (principal) ==

== ENCOUNTER → 2023-12-12 | Outpatient (REF) | payer MEDICARE, MEDICAID ==
[2023-12-12 14:04] LABS: ALBUMIN 3.9 G/DL (3.2-5.2); ALKALINE PHOSPHATASE 71 U/L (46-116); ALT/SGPT 29 U/L (7.0-40); AST/SGOT 21 U/L (<34); BILIRUBIN,TOTAL 0.4 MG/DL (0.3-1.2); BLOOD UREA NITROGEN 18 MG/DL (9-23); CALCIUM LEVEL 9.1 MG/DL (8.5-10.1); CARBON DIOXIDE LEVEL 31 MMOL/L (20-31); CHLORIDE LEVEL 102 MMOL/L (98-107); CREATININE FOR GFR 0.51 MG/DL (0.70-1.30); GLOMERULAR FILTRATION RATE > 60.0 (>56); GLUCOSE, FASTING 104 MG/DL (60-100); HEMATOCRIT 47.1 % (42.0-52.0); HEMOGLOBIN 14.7 g/dl (13.5-17.5); IRON (FE) 91 UG/DL (65-175); MEAN CORPUSCULAR HEMOGLOBIN 28.1 pg (27.0-33.0); MEAN CORPUSCULAR HGB CONC 31.2 g/dl (32.0-36.5); MEAN CORPUSCULAR VOLUME 90.1 fl (80.0-96.0); POTASSIUM SERUM 4.3 MMOL/L (3.5-5.1); RED BLOOD COUNT 5.23 10^6/uL (4.30-6.10); SODIUM LEVEL 140 MMOL/L (136-145); TOTAL IRON BINDING CAPACITY 350 UG/DL (250-425); TOTAL PROTEIN 7.2 G/DL (5.7-8.2)
[2023-12-12 14:06] LABS: FERRITIN 41.7 NG/ML (10.5-307.3)
== END ==
LOC: M SFHCADAM 09:22
PROVIDERS: ATTEND Physician Assistant
DX: Z00.00 Encounter for general adult medical examination without abnormal findings (principal); Z93.1 Gastrostomy status; K59.00 Constipation, unspecified; D50.8 Other iron deficiency anemias; R74.8 Abnormal levels of other serum enzymes

== ENCOUNTER → 2024-05-02 | Outpatient (CLI) | payer MEDICARE, MEDICAID | LOC: M RAD 09:40 | PROVIDERS: ATTEND Internal Medicine Pulmonary Disease | DX: R91.8 Other nonspecific abnormal finding of lung field (principal) ==

== ENCOUNTER 2024-07-03 16:36 | Emergency (ER) | payer MEDICARE, MEDICAID ==
[~2024-07-03] VITALS: Ht 167.6 cm; Wt 48.6 kg
[~2024-07-03 16:36] MED LIST changes: -MIDO10TA PEG; -MIDO10TA PO; +MIDO10TA3 PEG; +MIDO10TA3 PO
[2024-07-03] MEDS ORDERED: GLYCCAP PO (16:55)
[2024-07-03] MEDS ORDERED: FERR325T3 PO (16:55)
[2024-07-03 19:21] VITALS: BP 152/66; TEMP 97.8; O2SAT 94
== END 2024-07-03 19:23 | disposition home or self-care (01) ==
LOC: M ED 16:36
DX: R11.10 Vomiting, unspecified (principal); Z88.2 Allergy status to sulfonamides; Z79.1 Long term (current) use of non-steroidal anti-inflammatories (NSAID); Z79.51 Long term (current) use of inhaled steroids; Z79.899 Other long term (current) drug therapy

== ENCOUNTER 2024-08-05 18:38 | Emergency (ER) | payer MEDICARE, MEDICAID ==
[~2024-08-05 18:38] MED LIST changes: -AMOX1SUS9 PO; +AMOX250S45 PO; +FERR325T3 PO; +GLYCCAP PO
[2024-08-05] MEDS: ACETAMINOPHEN *IV* 500 MG in IV 1 EA IV ONE (20:50)
[2024-08-05] MEDS: NS (Normal Saline) 0.9% 1,000 ML IV STA (20:50)
[2024-08-05 21:07] LABS: BASO % 0.3 % (0.0-1.0); EOS % 0.3 % (0.0-3.0); HEMATOCRIT 49.4 % (42.0-52.0); HEMOGLOBIN 15.8 g/dl (13.5-17.5); LYMPH # 0.3 10^3/uL (1.5-5.0); LYMPH % 2.8 % (24.0-44.0); MEAN CORPUSCULAR HEMOGLOBIN 28.7 pg (27.0-33.0); MEAN CORPUSCULAR VOLUME 89.8 fl (80.0-96.0); MONO # 0.7 10^3/uL (0.0-0.8); MONO % 6.8 % (2.0-8.0); NEUTROPHILS # 8.8 10^3/uL (1.5-8.5); NEUTROPHILS % 89.4 % (36.0-66.0); PLATELET COUNT, AUTOMATED 121 10^3/uL (150-450); WHITE BLOOD COUNT 9.9 10^3/uL (4.0-10.0)
[2024-08-05 21:32] LABS: LIPASE 40 U/L (12-53)
[2024-08-05 21:34] LABS: ALBUMIN 4.2 G/DL (3.2-5.2); ALKALINE PHOSPHATASE 70 U/L (40-129); ALT/SGPT 31 U/L (7.0-40); AST/SGOT 35 U/L (<34); BILIRUBIN,TOTAL 0.4 MG/DL (0.3-1.2); BLOOD UREA NITROGEN 21 MG/DL (9-23); CALCIUM LEVEL 8.9 MG/DL (8.5-10.1); CARBON DIOXIDE LEVEL 31 MMOL/L (20-31); CHLORIDE LEVEL 103 MMOL/L (98-107); CREATININE FOR GFR 0.62 MG/DL (0.70-1.30); GLOMERULAR FILTRATION RATE > 60.0 (>56); GLUCOSE, FASTING 106 MG/DL (60-100); POTASSIUM SERUM 4.5 MMOL/L (3.5-5.1); SODIUM LEVEL 144 MMOL/L (136-145); TOTAL PROTEIN 7.8 G/DL (5.7-8.2)
[2024-08-06] VITALS: BP 99/63; O2SAT 92
[2024-08-06] MEDS ORDERED: OSEL6SUSP PEG (00:56)
[2024-08-06 01:08] VITALS: TEMP 98.4
== END 2024-08-06 01:19 | disposition home or self-care (01) ==
LOC: M ED 18:38
DX: J09.X2 Influenza due to identified novel influenza A virus with other respiratory manifestations (principal); G80.8 Other cerebral palsy; R13.10 Dysphagia, unspecified; Z93.1 Gastrostomy status; Z88.2 Allergy status to sulfonamides; Z79.1 Long term (current) use of non-steroidal anti-inflammatories (NSAID); Z79.51 Long term (current) use of inhaled steroids; Z79.899 Other long term (current) drug therapy
CPT/HCPCS: 74021; 80053; 83690; 85025; 87486; 87581; 87633; 87798; 96361; 96365; 99285; J0131

== ENCOUNTER 2025-02-28 12:37 | Emergency (ER) | payer MEDICARE, MEDICAID ==
[~2025-02-28] VITALS: Ht 160 cm; Wt 46.8 kg
[~2025-02-28 12:37] MED LIST changes: +AMMO12CR4 TOP; -AMMO12CR7 TOP; -AMOX250S45 PO; +AMOX250S46 PO; +FERR220E10 GT; +MIRA3350 GT; +OSEL6SUSP PEG; +SUCR1ORA20 PEG; +TGTSUS2 GT; -TGTSUS2 PO; +[UNRECOGNIZED DRUG - CODE] GT
[2025-02-28] MEDS ORDERED: ONDANSETRON 4MG ORAL DISINTEGRATING TAB PO ONE (14:35)
[2025-02-28] MEDS: ONDANSETRON 4MG 2ML VIAL IV ONE (15:23)
[2025-02-28 16:01] LABS: PLATELET COUNT, AUTOMATED 116 10^3/uL (150-450)
[2025-02-28 16:05] LABS: EOSINOPHILS 3 % (0-3); LYMPHOCYTES 14 % (16-44); MONOCYTES 1 % (0-5); NEUTROPHILS 81 % (28-66); PLATELET ESTIMATE DECREASED (NORMAL)
[2025-02-28 16:32] LABS: CALCIUM LEVEL 8.9 MG/DL (8.5-10.1); CARBON DIOXIDE LEVEL 32 MMOL/L (20-31); CHLORIDE LEVEL 101 MMOL/L (98-107); CREATININE FOR GFR 0.49 MG/DL (0.70-1.30); GLOMERULAR FILTRATION RATE > 90.0 (>56); POTASSIUM SERUM 4.0 MMOL/L (3.5-5.1); SODIUM LEVEL 143 MMOL/L (136-145)
[2025-02-28 17:34] VITALS: BP 122/61; TEMP 97.8; O2SAT 97
[2025-02-28] MEDS ORDERED: NIRM1TAB16 GT (17:46)
[2025-02-28] MEDS ORDERED: ONDA-83 GT (17:46)
== END 2025-02-28 18:06 | disposition home or self-care (01) ==
LOC: M ED 12:37
DX: U07.1 COVID-19 (principal); Z88.2 Allergy status to sulfonamides; Z79.1 Long term (current) use of non-steroidal anti-inflammatories (NSAID); Z79.51 Long term (current) use of inhaled steroids; Z79.899 Other long term (current) drug therapy
CPT/HCPCS: 74021; 80048; 85025; 87486; 87581; 87633; 87798; 96374; 99283; J2405

== ENCOUNTER → 2025-04-10 | Outpatient (REF) | payer MEDICARE, MEDICAID ==
[~2025-04-10] MED LIST changes: +NIRM1TAB16 GT; +ONDA-83 GT
[2025-04-10 14:16] LABS: PSA SCREENING 0.93 NG/ML (< 4.00)
[2025-04-10 14:21] LABS: IRON (FE) 90 UG/DL (65-175); PERCENT SATURATION 29.3 % (19.7-50.0)
[2025-04-10 14:22] LABS: ALT/SGPT 75 U/L (7.0-40); AST/SGOT 51 U/L (<34); CALCIUM LEVEL 8.9 MG/DL (8.5-10.1); CARBON DIOXIDE LEVEL 32 MMOL/L (20-31); CHLORIDE LEVEL 101 MMOL/L (98-107); CHOLESTEROL LEVEL 125 MG/DL (<200); CHOLESTEROL RISK RATIO 3.51 (<5); CREATININE FOR GFR 0.59 MG/DL (0.70-1.30); GLOMERULAR FILTRATION RATE > 90.0 (>56); LDL CHOLESTEROL 67.8 MG/DL (<100); NON-HDL-C 89.4 MG/DL; POTASSIUM SERUM 4.3 MMOL/L (3.5-5.1); SODIUM LEVEL 142 MMOL/L (136-145); TRIGLYCERIDES LEVEL 108 MG/DL (<150); VITAMIN B12 LEVEL 1681 PG/ML (211-911)
== END ==
LOC: M SFHCADAM 09:26
PROVIDERS: ATTEND Physician Assistant
DX: F71 Moderate intellectual disabilities (principal); I47.19 Other supraventricular tachycardia; K11.7 Disturbances of salivary secretion; D50.8 Other iron deficiency anemias; Z13.220 Encounter for screening for lipoid disorders; G80.0 Spastic quadriplegic cerebral palsy; Z93.1 Gastrostomy status; Z12.5 Encounter for screening for malignant neoplasm of prostate; E78.00 Pure hypercholesterolemia, unspecified
CPT/HCPCS: 80053; 80061; 82607; 82728; 82746; 83550; 85027; G0103